=== PATIENT | male | born 1940 | race Caucasian/White ===

== ENCOUNTER 2017-04-22 22:12 | Emergency (ER) | payer MEDICARE, OTHER ==
[2017-04-22 23:23] LABS: RBC URINE < 1 /hpf (0-3); URINE BILIRUBIN NEGATIVE (NEGATIVE); URINE BLOOD NEGATIVE (NEGATIVE); URINE COLOR Straw (YELLOW); URINE GLUCOSE (UA) NORMAL (Normal); URINE KETONE NEGATIVE (NEGATIVE); URINE LEUKOCYTE ESTERASE NEG Leu/uL (Negative); URINE PROTEIN NEGATIVE (NEGATIVE); URINE UROBILINOGEN NORMAL mg/dL (0.2-1.0)
[2017-04-22 23:27] LABS: CHLORIDE 102 mmol/L (98-107); POTASSIUM 4.2 mmol/L (3.6-5.2); SODIUM 137 mmol/L (132-148)
[2017-04-22 23:29] LABS: ALB/GLOB RATIO 1.4 (1.0-2.1); BILIRUBIN,TOTAL 0.6 mg/dL (0.2-1.3); CARBON DIOXIDE 25 mmol/L (22-30); CHOLESTEROL 152 mg/dL (0-199); GFR AFRICAN-AMERICAN 55; TOTAL PROTEIN 7.2 g/dL (6.3-8.3)
[2017-04-22 23:30] LABS: ALKALINE PHOSPHATASE 63 U/L (38-126); ALT/SGPT 30 U/L (21-72); AST/SGOT 30 U/L (17-59); BLOOD UREA NITROGEN 22 mg/dL (9-20); CALCIUM 9.2 mg/dl (8.6-10.4); GLUCOSE,RANDOM 102 mg/dL (75-110)
--- NOTE | 2017-04-22 23:35 | CT ---
EXAM: CT Head Without Intravenous Contrast CLINICAL HISTORY: 76 years old, male; Signs and symptoms; Numbness / parasthesia; Right; Additional info: Transient r facial/body numbness TECHNIQUE: Axial computed tomography images of the head/brain without intravenous contrast. This CT exam was performed using one or more of the following dose reduction techniques: automated exposure control, adjustment of the mA and/or kV according to patient size, and/or use of iterative reconstruction technique. COMPARISON: CT - HEAD W/O CONTRAST 10/24/2015 7:08:09 PM FINDINGS: Brain: No acute intracranial hemorrhage. Age-appropriate periventricular white matter disease. No edema. Again identified are findings suggesting prior cerebral infarctions, within the left cerebellum and occipital lobes. Ventricles: Age-appropriate ventriculomegaly. Bones: No acute displaced fracture. Sinuses: Unremarkable as visualized. No acute sinusitis. Mastoid air cells: Unremarkable as visualized. No mastoid effusion. IMPRESSION: No acute intracranial hemorrhage, or suspicious mass effect.
--- NOTE | 2017-04-23 00:14 | C.PDOC ---
Time Seen by Provider: 04/22/17 22:58 Chief Complaint (Nursing): Weakness/Neurological Deficit Past Medical History Vital Signs: Last Vital Signs Temp 97.8 F 04/22/17 22:17 Pulse 61 04/22/17 22:17 Resp 20 04/22/17 22:17 BP 132/78 04/22/17 22:17 Pulse Ox 97 04/22/17 22:17 - Medical History PMH: Atrial Fibrillation, Benign Prostatic Hyperplasia, HTN Surgical History: CABG (2016) - [facility] Procedures CLOSURE SKIN & SUBCUTANEOUS NEC (05/08/14) CORONAR ARTERIOGR-2 CATH (02/04/15) INJECT/INFUSE NEC (02/05/15) INSERTION OF ENDOTRACHEAL AIRWAY INTO TRACHEA, ENDO (04/29/16) INSERTION OF ONE VASCULAR STENT (02/05/15) INSRT OF DRUG-ELUTING CORON ARTERY STENTS(S) (02/05/15) LEFT HEART CARDIAC CATH (02/04/15) LT HEART ANGIOCARDIOGRAM (02/04/15) MEASURE OF CARDIAC SAMPL & PRESSURE, L HEART, PERC APPROACH (04/29/16) PERCUTANEOUS TRANSLUMINAL CORONARY ANGIOPLASTY [PTCA] (02/05/15) PLAIN RADIOGRAPHY OF LEFT HEART USING LOW OSMOLAR CONTRAST (04/29/16) PLAIN RADIOGRAPHY OF MULT COR ART USING L OSM CONTRAST (04/29/16) PROCEDURE ON SINGLE VESSEL (02/05/15) RESPIRATORY VENTILATION, 24-96 CONSECUTIVE HOURS (04/29/16) TETANUS TOXOID ADMINIST (05/08/14) Family History: States: Unknown Family Hx - Social History Hx Tobacco Use: No Hx Alcohol Use: No Hx Substance Use: No - Immunization History Hx Tetanus Toxoid Vaccination: No Hx Influenza Vaccination: No Hx Pneumococcal Vaccination: No ED Course And Treatment - Laboratory Results Result Diagrams: 04/22/17 23:15 O2 Sat by Pulse Oximetry: 97
--- NOTE | 2017-04-23 00:15 | C.PDOC ---
History Of Present Illness 76 year old male was brought to the ED by EMS complaints of transient right body weakness and paresthesia while walking. Patient denies any fever, vision changes, vomiting, or chest pain. Time Seen by Provider: 04/22/17 22:58 Chief Complaint (Nursing): Weakness/Neurological Deficit History Per: Patient History/Exam Limitations: no limitations Onset/Duration Of Symptoms: Hrs Current Symptoms Are (Timing): Gone (Patient notes symptoms resolved upon arrival to ED) Fall Associated With With Symptoms: No Recent travel outside of the [place]: No Additional History Per: EMS Past Medical History Reviewed: Historical Data, Nursing Documentation, Vital Signs Vital Signs: Last Vital Signs Temp 97.8 F 04/22/17 22:17 Pulse 63 04/23/17 00:17 Resp 20 04/23/17 00:17 BP 131/102 H 04/23/17 00:17 Pulse Ox 97 04/23/17 00:36 - Medical History PMH: Atrial Fibrillation, Benign Prostatic Hyperplasia, HTN Surgical History: CABG (2015) - [facility] Procedures CLOSURE SKIN & SUBCUTANEOUS NEC (05/08/14) CORONAR ARTERIOGR-2 CATH (02/04/15) INJECT/INFUSE NEC (02/05/15) INSERTION OF ENDOTRACHEAL AIRWAY INTO TRACHEA, ENDO (04/29/16) INSERTION OF ONE VASCULAR STENT (02/05/15) INSRT OF DRUG-ELUTING CORON ARTERY STENTS(S) (02/05/15) LEFT HEART CARDIAC CATH (02/04/15) LT HEART ANGIOCARDIOGRAM (02/04/15) MEASURE OF CARDIAC SAMPL & PRESSURE, L HEART, PERC APPROACH (04/29/16) PERCUTANEOUS TRANSLUMINAL CORONARY ANGIOPLASTY [PTCA] (02/05/15) PLAIN RADIOGRAPHY OF LEFT HEART USING LOW OSMOLAR CONTRAST (04/29/16) PLAIN RADIOGRAPHY OF MULT COR ART USING L OSM CONTRAST (04/29/16) PROCEDURE ON SINGLE VESSEL (02/05/15) RESPIRATORY VENTILATION, 24-96 CONSECUTIVE HOURS (04/29/16) TETANUS TOXOID ADMINIST (05/08/14) Family History: States: Unknown Family Hx - Social History Hx Tobacco Use: No Hx Alcohol Use: No Hx Substance Use: No - Immunization History Hx Tetanus Toxoid Vaccination: No Hx Influenza Vaccination: No Hx Pneumococcal Vaccination: No Review Of Systems Constitutional: Positive for: Weakness (right sided body weakness). Negative for: Fever, Chills Eyes: Negative for: Vision Change Cardiovascular: Negative for: Chest Pain, Palpitations Respiratory: Negative for: Cough, Shortness of Breath Gastrointestinal: Negative for: Nausea, Vomiting, Abdominal Pain, Diarrhea Neurological: Positive for: Other (paresthesia while walking ) Physical Exam - Physical Exam Appears: Non-toxic, No Acute Distress Skin: Warm, Dry Head: Atraumatic Eye(s): bilateral: Normal Inspection, PERRL, EOMI Oral Mucosa: Moist Neck: Supple Chest: No Symmetrical Cardiovascular: Rhythm Regular Respiratory: No Rales, No Rhonchi, No Stridor, No Wheezing Gastrointestinal/Abdominal: Soft, No Tenderness, No Distention, No Guarding, No Rebound Extremity: Normal ROM, No Tenderness, No Calf Tenderness, Capillary Refill ( good capillary refill less than two seconds ), No Swelling Neurological/Psych: Oriented x3, Normal Speech, Normal Cognition, Normal Motor, Normal Sensation, Normal Reflexes Gait: Steady ED Course And Treatment - Laboratory Results Result Diagrams: 04/22/17 23:15 ECG: Interpreted By [facility] ECG Rhythm: Sinus Rhythm ECG Interpretation: Normal Rate From EC O2 Sat by Pulse Oximetry: 97 (room air ) Pulse Ox Interpretation: Normal - Radiology CXR: Interpreted by [facility] CXR Interpretation: Yes: No Acute Disease - CT Scan/US CT Head Without Intravenous Contrast Other Rad Studies (CT/US): Read By Radiologist, Radiology Report Reviewed CT/US Interpretation: Impression: No acute intracranial hemorrhage, or suspicious mass effect. Progress Note: approx 0015 pt developed a sudden R facial droop, expressive aphasia, but able to follow simple directions and show one or two fingers as instructed. CTA ordered, ASA CO previously given. 0100: symptoms normalizing again. case d/w Dr. Red Ramos- Neuro @ [facility]- agrees to accept in transfer, recommends ASA CO only. CTA results pending. Reevaluation Time: 01:15 Reassessment Condition: Improved NIHSS Stroke Scale - Date/Time Evaluation Performed Date Performed: 04/22/17 Time Performed: 23:00 - How Severe is the Stoke Level of Consciousness: 0=Alert LOC to Questions: 0=Both comments correct LOC to commands: 0=Obeys both correctly Best Gaze: 0=Normal Visual: 0=No visual loss Facial: 0=Normal Motor Arm - Left: 0=No drift Motor Arm - Right: 0=No drift Motor Leg - Left: 0=No drift Motor Leg - Right: 0=No drift Limb Ataxia: 0=Absent Sensory: 0=Normal Best Language: 0=No aphasia Dysarthia: 0=Normal articulation Extinction & Inattention (Neglect): 0=Normal, no object Score: 0 Severity Of Stroke: 0= No Stroke rTPA Inclusion/Exclusion - Refusal of Treatment Patient Refused Treatment: No - Inclusion Criteria for Altepase Patient is 18 years or Older: Yes The Clinical Diagnosis of Ischemic Stroke That is Causing a Potentially Disabling Neurological Deficit: No Time of Onset is Well Established to be Less Than 270 Minute Before Treatment Would Begin: Yes Risk/Benefit Discussed With Patient/Family Member Present: No - Exclusion Criteria for Altepase Uncontrolled Hypertension at Time of Treatment (Systolic BP above 185 or Diastolic BP above 110 mmHg): No Known Bleeding Diathesis Including but Not Limited to: Platelets Below 100,000/ mm,PTT Above 40 sec After Heparin Use, Current Use of Oral Anitcoagulant With INR Greater Than 1.7 or PT Greater Than 15 secs: No Evidence of an Intracranial Hemorrhage: No Evidence of Major Acute Infarct With Signs Greater Than 1/3 MCA Territory: No Suspicion of Subarachnoid Hemorrhage on Pretreatment Evaluation Even if CT Head Negative For Hemorrhage: No - Warning to TPA With Conditions Condition: Stroke Serevity Too Mild Medical Decision Making Medical Decision Makin: head CT neg, CTA grossly neg, R internal carotid stenosis noted. 0130: multiple TIA, with spontaneous resolution in ED. R internal carotid stenosis noted on CTA, no acute brain pathology on non-contrast had CT nor CTA. ASA CO given. Plan to transfer to [facility], accepted by Dr. Red Ramos, Neurology. Disposition - Disposition Disposition: Trans to Other Acute Care Hosp Disposition Time: 01:30 Condition: GOOD - Clinical Impression Clinical Impression: TIA (transient ischemic attack), Carotid stenosis - Scribe Statement The provider has reviewed the documentation as recorded by the Scribe Corin Randle All medical record entries made by the Scribe were at my direction and personally dictated by me. I have reviewed the chart and agree that the record accurately reflects my personal performance of the history, physical exam, medical decision making, and the department course for this patient. I have also personally directed, reviewed, and agree with the discharge instructions and disposition.
[2017-04-23] MEDS ORDERED: Iodixanol 320 MG/ML 100 ML BOTTLE IV ONE (00:22)
[2017-04-23 00:52] VITALS: BMI 28.4
[2017-04-23 01:43] VITALS: O2SAT 96
[2017-04-23 02:09] LABS: BASO % 0.7 % (0.0-2.0); EOS # 0.2 K/uL (0.0-0.7); EOS % 2.6 % (0.0-4.0); HEMATOCRIT 41.9 % (35.0-51.0); LYMPH # 1.8 K/uL (1.0-4.3); LYMPH % 29.1 % (20.0-40.0); MEAN CELL VOLUME 91.8 fL (80.0-94.0); MEAN CORPUSCULAR HEMOGLOBIN 29.9 pg (27.0-31.0); MEAN CORPUSCULAR HGB CONC 32.5 g/dL (33.0-37.0); MEAN PLATELET VOLUME 9.2 fL (7.2-11.7); MONO # 0.6 K/uL (0.0-0.8); MONO % 8.7 % (0.0-10.0); RED CELL DISTRIBUTION WIDTH 12.7 % (11.5-14.5); WHITE BLOOD COUNT 6.3 K/uL (4.8-10.8)
[2017-04-23 02:10] VITALS: TEMP 98.1
[2017-04-23 02:24] VITALS: PULSE 60
[2017-04-23 03:28] VITALS: BP 164/88; RESP 14
--- NOTE | 2017-04-23 10:18 | RAD ---
HISTORY: weakness COMPARISON: 07/01/2016 FINDINGS: LUNGS: Confluent airspace consolidative changes in the left mid to lower lung zone with associated small to moderate left pleural effusion. Biapical pleural thickening with upper lobe granulomatous changes. PLEURA: As above. CARDIOVASCULAR: Status post median sternotomy. Cardiomegaly. OSSEOUS STRUCTURES: Degenerative changes in the spine and shoulders. VISUALIZED UPPER ABDOMEN: Normal. OTHER FINDINGS: None. IMPRESSION: Confluent airspace consolidative changes in the left mid to lower lung zone with associated small to moderate left pleural effusion. Biapical pleural thickening with upper lobe granulomatous changes.
--- NOTE | 2017-04-23 11:31 | CT ---
PROCEDURE: CT angiography of the brain dated 04/23/2017 HISTORY: Sudden aphasia . ? Wernicke's/L temporal COMPARISON: Comparison made with prior CT scan of the brain dated 04/22/2017 at 2330 hours TECHNIQUE: CT angiography of the neck and intracranial circulation was performed. Coronal and sagittal maximum intensity projection reformated images were generated. This CT exam was performed using one or more of the following dose reduction techniques: Automated exposure control, adjustment of the mA and/or kV according to patient size, and/or use of iterative reconstruction technique. Contrast dose: 100 cc Visipaque 320 Radiation dose: Total exam DLP = 507.26 mGy-cm. . Findings: FINDINGS: No acute parenchymal or extra-axial hemorrhage. Note that evaluation for subarachnoid hemorrhage somewhat limited due to the presence of circulating intravenous contrast material. Moderate to significant diffuse/ confluent chronic periventricular white matter ischemic changes most pronounced in the parietal regions bilaterally. Additionally, chronic infarct in the posteromedial and inferior margin of the left cerebellum unchanged from prior study. Moderate to significant generalized volume loss. Right and left common carotid arteries are patent throughout, left-sided which is slightly larger in caliber/ more dominant than the right. Extensive soft plaque is present at the left right carotid bifurcation and results in severe high-grade stenosis of the right internal carotid artery with severe string sign best seen on axial image numbers 76 -- 78. . There is slightly increased caliber of the more distal internal carotid artery as it enters the petrous canal. Another significant stenosis is seen at the level of the right cavernous carotid artery best seen on axial image number 136. There is asymmetry of the A1 segments right-sided which smaller in caliber than the left side. The M1 segments are patent bilaterally. There is minimal asymmetry of the distal branches of the no likely anatomic variation as no definitive large acute MCA territory infarct is identified. . The vertebral arteries are patent and relatively symmetric throughout. Basilar artery is also patent as are the proximal posterior cerebral arteries. The distal posterior cerebral arteries are relatively symmetric as well. No evidence of large aneurysm nor vascular malformation. The Mild biapical pleural thickening and parenchymal scarring and what appears represent some bronchiectasis right lung apex with level of few small blebs. There also appears to be some mild peripheral somewhat nodular pleural based calcifications left lung apex. Polypoid like mucosal thickening and/or mucous retention cyst formation left maxillary sinus. Changes of bilateral cataract surgery. Impression: Very severe high-grade stenosis of the proximal mid aspect of the right internal carotid artery. There is also significant localized stenosis of the right cavernous carotid artery. 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 Mild volume loss.
--- NOTE | 2017-04-26 11:56 | CARD ---
APPROVED REPORT EKG Measurement Heart [id number] ID [id number] <Conclusion> Sinus rhythm with occasional premature ventricular complexes Low voltage QRS Borderline ECG
== END 2017-04-23 03:28 | disposition short-term general hospital (02) ==
LOC: C.ER 22:12
DX: G45.9 Transient cerebral ischemic attack, unspecified (principal); I65.21 Occlusion and stenosis of right carotid artery; N40.0 Benign prostatic hyperplasia without lower urinary tract symptoms; I10 Essential (primary) hypertension; I48.91 Unspecified atrial fibrillation
CPT/HCPCS: 70450; 70460; 71010; 80053; 80061; 81001; 83036; 83880; 84484; 85025; 85610; 85730; 86850; 86900; 99285; Q9967

== ENCOUNTER 2017-04-29 12:09 | Emergency (ER) | payer MEDICARE, OTHER ==
[2017-04-29 12:09] VITALS: BMI 28.4
[2017-04-29 12:32] VITALS: RESP 20
--- NOTE | 2017-04-29 13:26 | C.PDOC ---
History Of Present Illness 76 yo male, hx of htn, tia/cva, presents with right sided numbness. pt poor historian. pt reports was d/c from another facility last night. noted pt was recently transferred to [facility] for cva on 04/23. pt reports he had right sided numbness which started last night, and resolved at 11am today, specifically to right sided face and arm. at this time, pt denies complaints, already voicing he would like to be d/c. no cp, fevers, n/v/d, urinary changes or other complaints Time Seen by Provider: 04/29/17 13:01 Chief Complaint (Nursing): Weakness/Neurological Deficit Past Medical History Reviewed: Historical Data, Nursing Documentation, Vital Signs Vital Signs: Last Vital Signs Temp 97.6 F 04/29/17 14:43 Pulse 56 L 04/29/17 14:43 Resp 20 04/29/17 14:43 BP 125/78 04/29/17 14:43 Pulse Ox 97 04/29/17 14:43 - Medical History PMH: Atrial Fibrillation, Benign Prostatic Hyperplasia, HTN Surgical History: CABG (2015) - [facility] Procedures CLOSURE SKIN & SUBCUTANEOUS NEC (05/08/14) CORONAR ARTERIOGR-2 CATH (02/04/15) INJECT/INFUSE NEC (02/05/15) INSERTION OF ENDOTRACHEAL AIRWAY INTO TRACHEA, ENDO (04/29/16) INSERTION OF ONE VASCULAR STENT (02/05/15) INSRT OF DRUG-ELUTING CORON ARTERY STENTS(S) (02/05/15) LEFT HEART CARDIAC CATH (02/04/15) LT HEART ANGIOCARDIOGRAM (02/04/15) MEASURE OF CARDIAC SAMPL & PRESSURE, L HEART, PERC APPROACH (04/29/16) PERCUTANEOUS TRANSLUMINAL CORONARY ANGIOPLASTY [PTCA] (02/05/15) PLAIN RADIOGRAPHY OF LEFT HEART USING LOW OSMOLAR CONTRAST (04/29/16) PLAIN RADIOGRAPHY OF MULT COR ART USING L OSM CONTRAST (04/29/16) PROCEDURE ON SINGLE VESSEL (02/05/15) RESPIRATORY VENTILATION, 24-96 CONSECUTIVE HOURS (04/29/16) TETANUS TOXOID ADMINIST (05/08/14) Family History: States: Unknown Family Hx - Social History Hx Tobacco Use: No Hx Alcohol Use: No Hx Substance Use: No - Immunization History Hx Tetanus Toxoid Vaccination: No Hx Influenza Vaccination: No Hx Pneumococcal Vaccination: No Review Of Systems Except As Marked, All Systems Reviewed And Found Negative. Neurological: Positive for: Numbness Physical Exam - Physical Exam Appears: Well, No Acute Distress Skin: Normal Color, Warm, Dry Eye(s): bilateral: Normal Inspection, PERRL, EOMI Nose: Normal Throat: Normal Neck: Normal Cardiovascular: Rhythm Regular Respiratory: Normal Breath Sounds Gastrointestinal/Abdominal: Normal Exam Back: Normal Inspection Extremity: Normal ROM Neurological/Psych: Oriented x3, Normal Speech, Normal Cognition, Normal Cranial Nerves, No Cerebellar Signs, Normal Motor, Normal Sensation ED Course And Treatment - Laboratory Results Result Diagrams: 04/29/17 13:34 04/29/17 13:34 O2 Sat by Pulse Oximetry: 98 Medical Decision Making Medical Decision Making: r/o tia/cva - labs imaging pending. pt poor historian. information obtained via hose sprayer 140: ekg sinus sudhir [address] t wave changes. nomral intervals. 215: pt again discussed results wtih hose sprayer juan luis lovell bedside. again request pt be observed in hospital to r/o cva. pt refuses. signs ama. warned of risks. advised extensivelywith hose sprayer, that pt will need mri to exclude acute stroke. The patient declines to have further medical evaluation and treatment and wishes to leave the Emergency Department. This action is against my medical advice to the patient, and with informed refusal. The patient was told that evaluation and treatment are necessary and a full explanation of the rationale was given. The risks of leaving were explained to the patient and include, but are not limited to, worsening of known or currently unknown conditions, permanent disability and from undiagnosed or untreated conditions The patient has the capacity to make this informed decision and understands the clinical situation and my explanation of the risks of leaving. The patient voluntarily accepts these risks, and a signed AMA form documenting our conversation was obtained. The patient was given the opportunity to ask questions and reconsider. The patient was encouraged to return to the Emergency Department at any time for further care. Disposition - Disposition Referrals: [facility] [Outside] [facility] [Outside] Rick Colon MD [Staff Provider] - Disposition: AGAINST MEDICAL ADVICE Disposition Time: 02:00 Condition: UNKNOWN Additional Instructions: you are leaving aginst medical advise. you are able to return at any time with any concern. please see your doctor/clinic and specialist. Instructions: Transient Ischemic Attack (ED), Paresthesia (ED), Against Medical Advice (ED) Print Language: LUXEMBOURGER - Clinical Impression Clinical Impression: Numbness
[2017-04-29 13:48] LABS: BASO % 0.4 % (0.0-2.0); EOS # 0.2 K/uL (0.0-0.7); EOS % 2.5 % (0.0-4.0); HEMOGLOBIN 14.8 g/dL (12.0-18.0); LYMPH # 1.3 K/uL (1.0-4.3); LYMPH % 20.1 % (20.0-40.0); MEAN CELL VOLUME 92.3 fL (80.0-94.0); MEAN CORPUSCULAR HEMOGLOBIN 29.8 pg (27.0-31.0); MEAN CORPUSCULAR HGB CONC 32.3 g/dL (33.0-37.0); MEAN PLATELET VOLUME 9.7 fL (7.2-11.7); MONO # 0.6 K/uL (0.0-0.8); MONO % 9.4 % (0.0-10.0); NEUT # 4.4 K/uL (1.8-7.0); NEUT % 67.6 % (50.0-75.0); NRBC % 0.1 % (0.0-2.0); RBC 4.98 Mil/uL (4.40-5.90); RED CELL DISTRIBUTION WIDTH 13.3 % (11.5-14.5); WHITE BLOOD COUNT 6.5 K/uL (4.8-10.8)
[2017-04-29 13:55] LABS: URINE BILIRUBIN NEGATIVE (NEGATIVE); URINE BLOOD NEGATIVE (NEGATIVE); URINE CLARITY Clear (Clear); URINE COLOR Yellow (YELLOW); URINE GLUCOSE (UA) NORMAL (Normal); URINE LEUKOCYTE ESTERASE NEG Leu/uL (Negative); URINE NITRATE NEGATIVE (NEGATIVE); URINE PROTEIN NEGATIVE (NEGATIVE); URINE UROBILINOGEN NORMAL mg/dL (0.2-1.0)
[2017-04-29 13:57] LABS: PROTHROMBIN TIME 11.4 SECONDS (9.7-12.2)
[2017-04-29 13:59] LABS: ALB/GLOB RATIO 1.3 (1.0-2.1); AST/SGOT 28 U/L (17-59); GFR AFRICAN-AMERICAN > 60; GFR NON-AFRICAN AMERICAN 59
[2017-04-29 14:00] LABS: ALT/SGPT 28 U/L (21-72); BLOOD UREA NITROGEN 20 mg/dL (9-20); CALCIUM 8.8 mg/dl (8.6-10.4); HDL CHOLESTEROL 49 mg/dL (30-70)
--- NOTE | 2017-04-29 14:05 | CT ---
PROCEDURE: CT HEAD WITHOUT CONTRAST. HISTORY: numbness COMPARISON: Noncontrast head CT performed 04/22/17 TECHNIQUE: Axial computed tomography images were obtained through the head/brain without intravenous contrast. Radiation dose: Total exam DLP = 841.89 mGy-cm. This CT exam was performed using one or more of the following dose reduction techniques: Automated exposure control, adjustment of the mA and/or kV according to patient size, and/or use of iterative reconstruction technique. FINDINGS: HEMORRHAGE: No intracranial hemorrhage. BRAIN: Diffuse atrophy with prominence of the ventricles and sulci noted. No mass effect or edema. Intracranial atherosclerotic calcifications. Moderate scattered periventricular and subcortical white matter hypodensities, which are nonspecific, but often seen with chronic microvascular ischemic disease. Hypodensities are most pronounced within the parietal regions bilaterally. Encephalomalacia re-identified involving the left cerebellum and occipital lobes. Please note that MRI with diffusion imaging is more sensitive in the detection of acute ischemic event. VENTRICLES: No hydrocephalus. CALVARIUM: Unremarkable. PARANASAL SINUSES: Unremarkable as visualized. No significant inflammatory changes. MASTOID AIR CELLS: Unremarkable as visualized. No inflammatory changes. OTHER FINDINGS: None. IMPRESSION: Generalized atrophy. Moderate nonspecific white matter changes as described above. Encephalomalacia involving the left cerebellum and occipital lobes.
--- NOTE | 2017-04-29 14:10 | RAD ---
HISTORY: right side numbness COMPARISON: Chest x-ray performed 04/22/17 TECHNIQUE: Chest, one view. FINDINGS: LUNGS: Biapical pleural thickening. Patient's chin obscures evaluation of the lung apices, predominantly the right. Left basilar atelectasis /infiltrate and or small pleural effusion. No definite pneumothorax. Please note that chest x-ray has limited sensitivity for the detection of pulmonary masses. CARDIOVASCULAR: Median sternotomy wires. Heart size appears within normal limits. OSSEOUS STRUCTURES: Degenerative changes of the spine and shoulders. VISUALIZED UPPER ABDOMEN: Elevation of the left hemidiaphragm. OTHER FINDINGS: None. IMPRESSION: Biapical pleural thickening. Left basilar atelectasis /infiltrate and or small pleural effusion.
[2017-04-29 14:11] LABS: LDL CHOLESTEROL 69 mg/dL (0-129)
[2017-04-29 14:44] VITALS: BP 125/78; PULSE 56; TEMP 97.6
[2017-04-29 23:43] VITALS: O2SAT 98
--- NOTE | 2017-04-30 17:14 | CARD ---
APPROVED REPORT EKG Measurement Heart [id number] <Conclusion> Sinus bradycardia Otherwise normal ECG
== END 2017-04-29 14:42 | disposition left against medical advice (07) ==
LOC: C.ER 12:09
DX: R20.0 Anesthesia of skin (principal)

== ENCOUNTER 2018-04-15 14:26 | Emergency (ER) | payer MEDICARE, OTHER ==
[2018-04-15 14:27] VITALS: BMI 28.4
--- NOTE | 2018-04-15 14:59 | C.PDOC ---
History Of Present Illness 77 y/o male presents to ED with c/o testicular pain for 2 days after he accidentally struck area while bathing. Patient denies redness, swelling, fever , chills, penile discharge, dysuria, hematuria or any other complaints at this time. Time Seen by Provider: 04/15/18 14:51 Chief Complaint (Nursing): Male Genitourinary History Per: Patient History/Exam Limitations: no limitations Onset/Duration Of Symptoms: Days Current Symptoms Are (Timing): Still Present Quality Of Discomfort: "Pain" Past Medical History Reviewed: Historical Data, Nursing Documentation, Vital Signs Vital Signs: Last Vital Signs Temp 98.4 F 04/15/18 17:05 Pulse 54 L 04/15/18 17:05 Resp 16 04/15/18 17:05 BP 108/64 04/15/18 17:05 Pulse Ox 97 04/15/18 17:05 - Medical History PMH: Atrial Fibrillation, Benign Prostatic Hyperplasia, CAD, HTN Surgical History: CABG (2015) - [facility] Procedures CLOSURE SKIN & SUBCUTANEOUS NEC (05/08/14) CORONAR ARTERIOGR-2 CATH (02/04/15) INJECT/INFUSE NEC (02/05/15) INSERTION OF ENDOTRACHEAL AIRWAY INTO TRACHEA, ENDO (04/29/16) INSERTION OF ONE VASCULAR STENT (02/05/15) INSRT OF DRUG-ELUTING CORON ARTERY STENTS(S) (02/05/15) LEFT HEART CARDIAC CATH (02/04/15) LT HEART ANGIOCARDIOGRAM (02/04/15) MEASURE OF CARDIAC SAMPL & PRESSURE, L HEART, PERC APPROACH (04/29/16) PERCUTANEOUS TRANSLUMINAL CORONARY ANGIOPLASTY [PTCA] (02/05/15) PLAIN RADIOGRAPHY OF LEFT HEART USING LOW OSMOLAR CONTRAST (04/29/16) PLAIN RADIOGRAPHY OF MULT COR ART USING L OSM CONTRAST (04/29/16) PROCEDURE ON SINGLE VESSEL (02/05/15) RESPIRATORY VENTILATION, 24-96 CONSECUTIVE HOURS (04/29/16) TETANUS TOXOID ADMINIST (05/08/14) Family History: States: Diabetes - Social History Hx Tobacco Use: Yes (Quit 18 yrs ago) Hx Alcohol Use: No Hx Substance Use: No - Immunization History Hx Tetanus Toxoid Vaccination: No Hx Influenza Vaccination: No Hx Pneumococcal Vaccination: No Review Of Systems Constitutional: Negative for: Fever, Chills Gastrointestinal: Negative for: Nausea, Vomiting Genitourinary: Positive for: Other (testicular pain). Negative for: Dysuria, Hematuria Skin: Negative for: Rash Physical Exam - Physical Exam Appears: Non-toxic, No Acute Distress Skin: Warm, Dry, No Rash Head: Atraumatic, Normacephalic Eye(s): bilateral: Normal Inspection Oral Mucosa: Moist Neck: Normal ROM, Supple Cardiovascular: Rhythm Regular Respiratory: Normal Breath Sounds, No Rales, No Rhonchi, No Wheezing Gastrointestinal/Abdominal: Soft, No Tenderness, No Guarding, No Rebound Male Genital: Testicular Tenderness (mild to left testicle), No Inguinal Swelling, No Scrotal Swelling Neurological/Psych: Oriented x3, Normal Speech ED Course And Treatment - Laboratory Results Result Diagrams: 04/15/18 15:19 04/15/18 15:19 Lab Interpretation: Normal (UA neg.) O2 Sat by Pulse Oximetry: 98 (RA) Pulse Ox Interpretation: Normal - Other Rad testicular US X-Ray: Interpreted by Me, Read By Radiologist (no acute injury, no sig pathology ) Progress Note: motrin PO Reevaluation Time: 16:50 Reassessment Condition: Improved Medical Decision Making Medical Decision Making: mild L testicular trauma (self-inflicted by accident) 3 days ago no hematoma, no torsion Disposition Doctor Will See Patient In The: Office Counseled Patient/Family Regarding: Studies Performed, Diagnosis - Disposition Referrals: Rajan Silverio MD [Staff Provider] - Rajat Bruce MD [Staff Provider] - Disposition: HOME/ ROUTINE Disposition Time: 16:51 Condition: GOOD Additional Instructions: continue normal routine ice packs to the testicle 1/2 hour per hour as needed motrin 400-600 mg every 6 hours as needed Follow-up with Urology- Dr. Bruce, as needed Call for an appointment. normal Testicular Ultrasound today. Instructions: Testicular Injury Forms: [facility] (Faroese) - Clinical Impression Clinical Impression: Pain in testicle due to trauma - Scribe Statement The provider has reviewed the documentation as recorded by the Scribe Jaxson Betts All medical record entries made by the Scribe were at my direction and personally dictated by me. I have reviewed the chart and agree that the record accurately reflects my personal performance of the history, physical exam, medical decision making, and the department course for this patient. I have also personally directed, reviewed, and agree with the discharge instructions and disposition.
[2018-04-15 15:25] LABS: BASO % 0.7 % (0.0-2.0); EOS # 0.2 K/uL (0.0-0.7); LYMPH # 1.2 K/uL (1.0-4.3); LYMPH % 18.9 % (20.0-40.0); MEAN CELL VOLUME 91.1 fL (80.0-94.0); MEAN CORPUSCULAR HEMOGLOBIN 30.4 pg (27.0-31.0); MEAN CORPUSCULAR HGB CONC 33.4 g/dL (33.0-37.0); MEAN PLATELET VOLUME 8.7 fL (7.2-11.7); MONO # 0.7 K/uL (0.0-0.8); NEUT % 65.4 % (50.0-75.0); NRBC % 0.1 % (0.0-2.0); RBC 4.6 Mil/uL (4.40-5.90); RED CELL DISTRIBUTION WIDTH 13.2 % (11.5-14.5); WHITE BLOOD COUNT 6.1 K/uL (4.8-10.8)
[2018-04-15 15:31] LABS: URINE BILIRUBIN NEGATIVE (NEGATIVE); URINE BLOOD NEGATIVE (NEGATIVE); URINE CLARITY Clear (Clear); URINE COLOR Yellow (YELLOW); URINE GLUCOSE (UA) NORMAL (Normal); URINE LEUKOCYTE ESTERASE NEG Leu/uL (Negative); URINE PROTEIN NEGATIVE (NEGATIVE); URINE UROBILINOGEN NORMAL mg/dL (0.2-1.0)
[2018-04-15 15:36] LABS: ALB/GLOB RATIO 1.5 (1.0-2.1); ALBUMIN 4.3 g/dL (3.5-5.0); ALT/SGPT 27 U/L (21-72); AST/SGOT 31 U/L (17-59); BLOOD UREA NITROGEN 23 mg/dL (9-20); CALCIUM 8.9 mg/dl (8.6-10.4); GFR AFRICAN-AMERICAN > 60; GFR NON-AFRICAN AMERICAN 54; LIPASE 245 U/L (23-300)
--- NOTE | 2018-04-15 16:35 | US ---
HISTORY: Left testicle minor trauma 3 days ago TECHNIQUE: Realtime sonography through the scrotum with color and doppler flow. COMPARISON: None Available. FINDINGS: RIGHT TESTICLE: Measures 4.3 x 1.7 x 2.5 cm. Normal echotexture and flow. RIGHT EPIDIDYMIS: Epididymal head measures 0.7 x 0.8 x 0.9 cm. Grossly unremarkable appearance with normal flow. LEFT TESTICLE: Measures 3.9 x 1.9 x 2.4 cm. Normal echotexture and flow. LEFT EPIDIDYMIS: Epididymal head measures 1.3 x 0.9 x 1.3 cm. There is a 5 mm cyst in the head of the epididymis otherwise normal in echotexture with normal flow. HYDROCELE: There are bilateral small complicated hydroceles. VARICOCELE: There is a small left varicocele. OTHER FINDINGS: None. IMPRESSION: No evidence for testicular mass, torsion or hematoma. Small bilateral complicated hydroceles and small left varicocele.
[2018-04-15 17:06] VITALS: BP 108/64; PULSE 54; RESP 16; TEMP 98.4
[2018-04-15 17:11] VITALS: O2SAT 98
== END 2018-04-15 17:32 | disposition home or self-care (01) ==
LOC: C.ER 14:26
DX: N50.812 Left testicular pain (principal)

== ENCOUNTER 2018-12-22 13:14 | Observation (INO) | payer MEDICARE, OTHER ==
[2018-12-22 15:00] LABS: BASO % 0.4 % (0.0-2.0); EOS # 0.1 K/uL (0.0-0.7); HEMOGLOBIN 14.4 g/dL (12.0-18.0); LYMPH # 1.3 K/uL (1.0-4.3); LYMPH % 18.6 % (20.0-40.0); MEAN CORPUSCULAR HEMOGLOBIN 30.7 pg (27.0-31.0); MEAN CORPUSCULAR HGB CONC 32.6 g/dL (33.0-37.0); MEAN PLATELET VOLUME 9.9 fL (7.2-11.7); MONO # 0.6 K/uL (0.0-0.8); MONO % 8.9 % (0.0-10.0); NEUT # 4.9 K/uL (1.8-7.0); NEUT % 70.1 % (50.0-75.0); NRBC % 0.1 % (0.0-2.0); RBC 4.69 Mil/uL (4.40-5.90); RED CELL DISTRIBUTION WIDTH 13.3 % (11.5-14.5)
[2018-12-22 15:07] LABS: INR 1.9; PROTHROMBIN TIME 20.8 SECONDS (9.7-12.2)
[2018-12-22 15:08] LABS: MEAN CELL VOLUME 94.1 fL (80.0-94.0)
[2018-12-22 15:22] LABS: ALB/GLOB RATIO 1.9 (1.0-2.1); ALBUMIN 4.6 g/dL (3.5-5.0); ALT/SGPT 23 U/L (21-72); AST/SGOT 41 U/L (17-59); BLOOD UREA NITROGEN 20 mg/dL (9-20); CALCIUM 9.2 mg/dl (8.6-10.4); GFR NON-AFRICAN AMERICAN > 60
--- NOTE | 2018-12-22 15:29 | C.PDOC ---
History Of Present Illness 78 y/o male brought in by ambulance for evaluation of substernal chest pain that began 1 hour SOLE ROUNDER. Patient also complains of SOB that began yesterday, and worsened with the chest pain today. Pain is sub-sternal and radiates up into his neck. He denies pleuritic/positional pain. Patient has PMHx of HTN, A FIB, CABG, BPH. He denies cough, fever, abdominal pain, nausea, vomiting, diaphoresis, or diarrhea. Time Seen by Provider: 12/22/18 14:39 Chief Complaint (Nursing): Chest Pain History Per: Patient History/Exam Limitations: no limitations Onset/Duration Of Symptoms: Hrs (x1) Current Symptoms Are (Timing): Still Present Severity: Moderate Quality: "Pain" Associated Symptoms: Dyspnea Exacerbating Factors: denies: Movement, Deep Breathing Additional History Per: EMS Past Medical History Reviewed: Historical Data, Nursing Documentation, Vital Signs Vital Signs: Last Vital Signs Temp 97 F L 12/22/18 13:20 Pulse 66 12/22/18 13:20 Resp 18 12/22/18 13:20 BP 168/84 H 12/22/18 13:20 Pulse Ox 94 L 12/22/18 13:20 - Medical History PMH: Atrial Fibrillation, Benign Prostatic Hyperplasia, CAD, HTN Surgical History: CABG (2015) - [facility] Procedures CLOSURE SKIN & SUBCUTANEOUS NEC (05/08/14) CORONAR ARTERIOGR-2 CATH (02/04/15) INJECT/INFUSE NEC (02/05/15) INSERTION OF ENDOTRACHEAL AIRWAY INTO TRACHEA, ENDO (04/29/16) INSERTION OF ONE VASCULAR STENT (02/05/15) INSRT OF DRUG-ELUTING CORON ARTERY STENTS(S) (02/05/15) LEFT HEART CARDIAC CATH (02/04/15) LT HEART ANGIOCARDIOGRAM (02/04/15) MEASURE OF CARDIAC SAMPL & PRESSURE, L HEART, PERC APPROACH (04/29/16) PERCUTANEOUS TRANSLUMINAL CORONARY ANGIOPLASTY [PTCA] (02/05/15) PLAIN RADIOGRAPHY OF LEFT HEART USING LOW OSMOLAR CONTRAST (04/29/16) PLAIN RADIOGRAPHY OF MULT COR ART USING L OSM CONTRAST (04/29/16) PROCEDURE ON SINGLE VESSEL (02/05/15) RESPIRATORY VENTILATION, 24-96 CONSECUTIVE HOURS (04/29/16) TETANUS TOXOID ADMINIST (05/08/14) Family History: States: Diabetes - Social History Hx Tobacco Use: Yes (Quit 18 yrs ago) Hx Alcohol Use: No Hx Substance Use: No - Immunization History Hx Tetanus Toxoid Vaccination: No Hx Influenza Vaccination: No Hx Pneumococcal Vaccination: No Review Of Systems Constitutional: Negative for: Fever, Sweats Eyes: Negative for: Vision Change Cardiovascular: Positive for: Chest Pain. Negative for: Palpitations Respiratory: Positive for: Shortness of Breath. Negative for: Cough Gastrointestinal: Negative for: Nausea, Vomiting, Abdominal Pain, Diarrhea Neurological: Negative for: Weakness, Numbness, Headache, Dizziness Physical Exam - Physical Exam Appears: Well, Non-toxic, No Acute Distress, Other (Speaking in full sentences) Skin: Normal Color, Warm, Dry, No Rash Head: Normacephalic Eye(s): bilateral: Normal Inspection Oral Mucosa: Moist Neck: Normal ROM Chest: No Tenderness, Other (Midline sternotomy scar with overlying keloid) Cardiovascular: Rhythm Regular Respiratory: Normal Breath Sounds, No Rales, No Rhonchi, No Wheezing, Other (Lungs CTA bilaterally) Gastrointestinal/Abdominal: Normal Exam, Bowel Sounds, Soft, No Tenderness, No Distention Extremity: Normal ROM, No Pedal Edema, No Calf Tenderness Pulses: Left Dorsalis Pedis: Normal, Right Dorsalis Pedis: Normal Neurological/Psych: Oriented x3 ED Course And Treatment - Laboratory Results Result Diagrams: 12/25/18 09:17 12/25/18 09:17 ECG: Interpreted By Me, Viewed By Me (sinus rhythm 61 bpm, nromal axis, no acute ST/T wave changes) ECG Interpretation: Normal O2 Sat by Pulse Oximetry: 94 (NC) Pulse Ox Interpretation: Normal - Other Rad CXR X-Ray: Read By Radiologist Interpretation: Accession No. : [id number]. Patient Name / ID : AME CARVAJAL / [id number]. Exam Date : 12/22/2018 15:12:20 ( Approved ). Study Comment : Sex / Age : M / 78Y. Creator : Fernanda Youngblood MD. Dictator : Fernanda Youngblood MD. Corporate Logistics Manager : Switchboard Installer : Fernanda Youngblood MD. A pprover2 : Report Date : 12/22/2018 15:36:31. My Comment : . HISTORY: cp. COMPARISON: Chest x-ray performed 04/29/17. TECHNIQUE: Chest, one view. FINDINGS: Examination limited by patient obliquity. LUNGS: Biapical pleural thickening. Patchy opacity in the medial right upper lobe may reflect atelectasis or pneumonia. Mild left basilar atelectasis. PLEURA: No significant pleural effusion identified. No definite pneumothorax . CARDIOVASCULAR: Median sternotomy wires. Borderline cardiomegaly. Ectatic aorta. Atherosclerotic calcifications of the aorta. OSSEOUS STRUCTURES: Degenerative changes. Osseous demineralization. Acromioclavicular arthropathy. VISUALIZED UPPER ABDOMEN: Mild elevation of the left hemidiaphragm. OTHER FINDINGS: None. IMPRESSION: Medial right upper lobe may reflect atelectasis or pneumonia. Mild left basilar atelectasis. Biapical pleural thickening. Borderline cardiomegaly. Ectatic aorta with atherosclerotic calcifications. Median sternotomy wires. Progress Note: Blood work, CXR, EKG ordered and reviewed. PO ASA given. - Physician Consult Information Physician Contacted: Mary Mcneal Outcome Of Conversation: Discussed patient with hospitalist, agrees with obs tele for chest pain, dyspnea, r/o ACS. Disposition - Disposition Disposition: HOSPITALIZED Disposition Time: 16:41 Condition: STABLE - Clinical Impression Clinical Impression: Dyspnea, Chest pain - Scribe Statement The provider has reviewed the documentation as recorded by the Geeta Fall Provider Attestation: All medical record entries made by the Ricardoibstar were at my direction and personally dictated by me. I have reviewed the chart and agree that the record accurately reflects my personal performance of the history, physical exam, medical decision making, and the department course for this patient. I have also personally directed, reviewed, and agree with the discharge instructions and disposition. Decision To Admit - Pt Status Changed To: Hospital Disposition Of: Observation - . Bed Request Type: Telemetry Admitting Physician: Mary Mcneal Patient Diagnosis: Chest discomfort, Dyspnea
[2018-12-22 15:35] LABS: B-TYPE NATRIURETIC PEPTIDE 168 pg/mL (0-900); CK-MB 1.32 ng/mL (0.0-3.38)
--- NOTE | 2018-12-22 15:39 | RAD ---
HISTORY: cp COMPARISON: Chest x-ray performed 04/29/17 TECHNIQUE: Chest, one view. FINDINGS: Examination limited by patient obliquity. LUNGS: Biapical pleural thickening. Patchy opacity in the medial right upper lobe may reflect atelectasis or pneumonia. Mild left basilar atelectasis. PLEURA: No significant pleural effusion identified. No definite pneumothorax . CARDIOVASCULAR: Median sternotomy wires. Borderline cardiomegaly. Ectatic aorta. Atherosclerotic calcifications of the aorta. OSSEOUS STRUCTURES: Degenerative changes. Osseous demineralization. Acromioclavicular arthropathy. VISUALIZED UPPER ABDOMEN: Mild elevation of the left hemidiaphragm. OTHER FINDINGS: None. IMPRESSION: Medial right upper lobe may reflect atelectasis or pneumonia. Mild left basilar atelectasis. Biapical pleural thickening. Borderline cardiomegaly. Ectatic aorta with atherosclerotic calcifications. Median sternotomy wires.
--- NOTE | 2018-12-22 16:42 | CP.PCM.HP ---
<Dorian Marques - Last Filed: 12/22/18 20:39> History of Present Illness - History of Present Illness History of Present Illness: PGY1 Medicine H and P for Dr. Mcneal This is a 78 year old female with PMH of Afib, aflutter, HTN, CHF, CAD (NE x2) with CABGx2, chronic PE (on xarelto) who presents with dyspnea on exertion for the past few months, worsening over the past 2 days with chest pain for the past 1 hour. Pt is a poor historian. Pt states that he has been unable to walk 1 block or go up on flight of stairs without getting short of breath. When prompted about the chest pain he is unable to describe it but states that he feels better now. Denies headache, dizziness, lightheadedness, visual changes, abdominal pain, n/v/d, fever, chills, cough, leg swelling or pain, recent tr anthony, prolonged immoblization. PMD: Jean Claude Cardio: Dagoberto Pt is a poor historian, pt's history and medications discussed with via telephone. EMR reviewed: PMH:Afib, aflutter, HTN, CHF, CAD with CABGx2, chronic PE PSH: CABG at [facility]3] (2013, 2016), Left knee surgery Meds: as per via telephone as pt does not know the medications he takes. She endorses: Finateride 5 mg PO QD, tamsulosin 0.4 mg PO QD, Rosuvastatin 40 mg PO QHS, Amioodarone 200 mg PO QD, Linzess 290 mg PO prn. Allx: NKDA FHx: NE and cancer (sister), NE (father) SHx: former smoker, denies Alcohol or drug use. Lives with and daughter. Present on Admission - Present on Admission Any Indicators Present on Admission: Yes History of DVT/PE: Yes Review of Systems - Review of Systems All systems: reviewed and no additional remarkable complaints except (as per HPI) Past Patient History - Infectious Disease Hx of Infectious Diseases: None - Tetanus Immunizations Tetanus Immunization: Unknown - Past Medical History & Family History Past Medical History?: Yes - Past Social History Smoking Status: Never Smoked - CARDIAC Hx Atrial Fibrillation: Yes Hx Hypertension: Yes - HEENT Hx HEENT Problems: No Hx Blind: No Hx Cataracts: No Hx Deafness: No Hx Difficulty Chewing: No Hx Epistaxis: No Hx Glaucoma: No Hx Macular Degeneration: No - INTEGUMENTARY Hx Eczema: No Hx Melanoma: No Hx Psoriasis: No Hx Squamous Cell: No - GENITOURINARY/GYNECOLOGICAL Hx Genitourinary Disorders: Yes - PSYCHIATRIC Hx Substance Use: No - SURGICAL HISTORY Hx Coronary Artery Bypass Graft: Yes (2015) - ANESTHESIA Hx Anesthesia: Yes Hx Anesthesia Reactions: No Hx Malignant Hyperthermia: No Meds Allergies/Adverse Reactions: Allergies Allergy/AdvReac Type Severity Reaction Status Date / Time No Known Allergies Allergy Verified 12/22/18 13:19 Physical Exam - Constitutional Appears: Non-toxic, No Acute Distress - Head Exam Head Exam: ATRAUMATIC, NORMAL INSPECTION - Eye Exam Eye Exam: EOMI, Normal appearance - ENT Exam ENT Exam: Mucous Membranes Moist - Neck Exam Neck exam: Positive for: Normal Inspection - Respiratory Exam Respiratory Exam: Clear to Auscultation Bilateral, NORMAL BREATHING PATTERN. absent: Rales, Rhonchi, Wheezes - Cardiovascular Exam Cardiovascular Exam: REGULAR RHYTHM, +S1, +S2 Additional comments: sterniotomy scar - GI/Abdominal Exam GI & Abdominal Exam: Normal Bowel Sounds, Soft. absent: Distended, Firm, Guarding, Rebound, Rigid, Tenderness - Extremities Exam Extremities exam: Positive for: normal capillary refill, normal inspection, pedal pulses present. Negative for: calf tenderness, pedal edema Additional comments: (+) clubbing of the fingers - Back Exam Back exam: NORMAL INSPECTION - Neurological Exam Neurological exam: Alert, Oriented x3 - Psychiatric Exam Psychiatric exam: Normal Affect, Normal Mood - Skin Skin Exam: Dry, Normal Color, Warm Results - Vital Signs Recent Vital Signs: Last Vital Signs Temp 97 F L 12/22/18 13:20 Pulse 65 12/22/18 15:38 Resp 18 12/22/18 15:38 BP 150/83 12/22/18 15:38 Pulse Ox 94 L 12/22/18 15:54 - Labs Result Diagrams: 12/22/18 14:55 12/22/18 14:55 Labs: Laboratory Results - last 24 hr 12/22/18 12/22/18 12/22/18 14:55 14:55 14:55 WBC 7.0 RBC 4.69 Hgb 14.4 Hct 44.1 MCV 94.1 H D MCH 30.7 MCHC 32.6 L RDW 13.3 Plt Count 156 MPV 9.9 Neut % (Auto) 70.1 Lymph % (Auto) 18.6 L Warrick % (Auto) 8.9 Eos % (Auto) 2.0 Baso % (Auto) 0.4 Neut # (Auto) 4.9 Lymph # (Auto) 1.3 Warrick # (Auto) 0.6 Eos # (Auto) 0.1 Baso # (Auto) 0.0 PT 20.8 H INR 1.9 APTT 39 H Sodium 136 Potassium 4.1 Chloride 103 Carbon Dioxide 25 Anion Gap 12 BUN 20 Creatinine 1.1 Est GFR ( Amer) > 60 Est GFR (Non-Af Amer) > 60 Random Glucose 90 Calcium 9.2 Total Bilirubin 0.5 AST 41 ALT 23 Alkaline Phosphatase 59 Total Creatine Kinase 114 CK-MB (Mass) 1.32 Troponin I < 0.0120 NT-Pro-B Natriuret Pep 168 Total Protein 7.1 Albumin 4.6 Globulin 2.5 Albumin/Globulin Ratio 1.9 Assessment & Plan - Assessment and Plan (Free Text) Assessment: This is a 78 year old female with PMH of Afib, aflutter, HTN, CHF, CAD (NE x2) with CABGx2, chronic PE (on xarelto) who presents with dyspnea on exertion for the past few months, worsening over the past 2 days. Pt is a poor historian. Pt states that he has been unable to walk 1 block or go up on flight of stairs without getting short of breath. Denies chest pain, headache, dizziness, lightheadedness, visual changes, abdominal pain, n/v/d, fever, chills, cough, recent travel, prolonged immobilization. Plan: Chest pain with dyspnea on exertion Tele monitor CXR shows Medial right upper lobe may reflex atelectasis or pneumonia. Mild left basilar atelectasis. biapical pleural thickening. Borderline cardiomegaly. Ectatic aorta with athersclerotic calcifications. Median sternotomy wires. Chest CT without contrast ordered troponin x1 is negative, will trend q6h x2 with EKGs EKG shows NSR at 61, no acute STTW changes O2 via IN prn Cardiology, Dr. Arenas, consulted F/u echocardiogram Hx of Afib/Aflutter Pt is NSR at this time Pt is on Xarelto 20 mg PO daily Continue home Amiodarine 200 mg PO daily F/u T4, TSH in am Hx of chronic PE Pt is on Xarelto 20 mg PO daily Hx of CAD with CABG Pt's medications needs to be verified with [facility] and/or PMD/cardiology Pt is bradycardic on the monitor, but asymptomatic Crestor 40 mg PO QHS F/u lipid panel in am Hx of CHF Does not seem to be fluid overloaded at this time May consider lasix in the future Confirm meds in am with pharmacy and/or PMD/cardio as pt is not on HF meds F/u echcardiogram Hx of BPH Continue home tamsulosin 0.4 mg PO QD, Finasteride 5 mg PO QD PPx: No indication for GI ppx VTE CI as pt is on Xarelto, SCDs HHD Dispo: admit to tele obs. F/u cardiology recs. F/u with pt pharmacy for full medication list. <Mary Mcneal - Last Filed: 12/24/18 20:20> Results - Vital Signs Recent Vital Signs: Last Vital Signs Temp 97.4 F L 12/24/18 15:54 Pulse 70 12/24/18 16:06 Resp 20 12/24/18 15:54 BP 123/81 12/24/18 15:54 Pulse Ox 98 12/24/18 15:54 - Labs Result Diagrams: 12/24/18 07:27 12/24/18 07:27 Labs: Laboratory Results - last 24 hr 12/24/18 12/24/18 07:27 07:27 WBC 7.3 RBC 4.95 Hgb 15.3 Hct 46.2 MCV 93.3 MCH 30.9 MCHC 33.1 RDW 13.0 Plt Count 174 MPV 9.8 Neut % (Auto) 62.2 Lymph % (Auto) 26.1 Warrick % (Auto) 8.5 Eos % (Auto) 2.7 Baso % (Auto) 0.5 Neut # (Auto) 4.5 Lymph # (Auto) 1.9 Warrick # (Auto) 0.6 Eos # (Auto) 0.2 Baso # (Auto) 0.0 Sodium 137 Potassium 4.1 Chloride 102 Carbon Dioxide 27 Anion Gap 12 BUN 18 Creatinine 1.2 Est GFR ( Amer) > 60 Est GFR (Non-Af Amer) 59 Random Glucose 97 Calcium 9.4 Phosphorus 3.5 Magnesium 2.2 Total Bilirubin 0.6 AST 30 ALT 18 L D Alkaline Phosphatase 62 Total Protein 7.4 Albumin 4.6 Globulin 2.7 Albumin/Globulin Ratio 1.7 Attending/Attestation - Attestation I have personally seen and examined this patient.: Yes I have fully participated in the care of the patient.: Yes I have reviewed all pertinent clinical information: Yes Notes (Text): This is a 78 years old male with history of pulmonary embolism, atrial fibrillation, status post CABG and prostate hypertrophy came to emergency room for chest pain and shortness of breath on exertion. Patient denies fever, denies cough, denies nausea vomiting denies ,abdominal pain and denies diarrhea. Patient was seen and examined in the emergency room with resident. Medication list obtained from his family. They will admit him to telemetry unit. Continue his home meds, do an echocardiogram, 3 sets of troponin and do a CT chest Assessment and plan discussed with the resident and I agree with the documentation.
[2018-12-22] MEDS ORDERED: Influenza Vaccine 60 mcg/0.5 mL SYR (4YR UP) IM ONE (20:08)
[2018-12-22 22:38] LABS: CK-MB 1.02 ng/mL (0.0-3.38); TROPONIN I 0.017 ng/mL (0.00-0.120)
[2018-12-23 00:42] VITALS: RESP 20
[2018-12-23 06:24] LABS: BASO # 0.1 K/uL (0.0-0.2); BASO % 0.8 % (0.0-2.0); EOS # 0.2 K/uL (0.0-0.7); EOS % 3.2 % (0.0-4.0); HEMOGLOBIN 14.2 g/dL (12.0-18.0); LYMPH # 1.7 K/uL (1.0-4.3); MEAN CELL VOLUME 92.5 fL (80.0-94.0); MEAN CORPUSCULAR HEMOGLOBIN 30.6 pg (27.0-31.0); MEAN CORPUSCULAR HGB CONC 33.1 g/dL (33.0-37.0); MEAN PLATELET VOLUME 9.4 fL (7.2-11.7); MONO # 0.6 K/uL (0.0-0.8); MONO % 8.3 % (0.0-10.0); NEUT # 4.8 K/uL (1.8-7.0); NEUT % 64.7 % (50.0-75.0); NRBC % 0.1 % (0.0-2.0); RBC 4.64 Mil/uL (4.40-5.90); RED CELL DISTRIBUTION WIDTH 13.2 % (11.5-14.5); WHITE BLOOD COUNT 7.5 K/uL (4.8-10.8)
[2018-12-23 06:45] LABS: LDL CHOLESTEROL 70 mg/dL (0-129)
[2018-12-23 06:46] LABS: CK-MB 1.05 ng/mL (0.0-3.38)
[2018-12-23 06:52] LABS: ALB/GLOB RATIO 1.8 (1.0-2.1); ALBUMIN 4.2 g/dL (3.5-5.0); ALT/SGPT 23 U/L (21-72); AST/SGOT 27 U/L (17-59); BLOOD UREA NITROGEN 17 mg/dL (9-20); CALCIUM 8.9 mg/dl (8.6-10.4); GFR NON-AFRICAN AMERICAN 59; HDL CHOLESTEROL 62 mg/dL (30-70)
--- NOTE | 2018-12-23 11:43 | CT ---
Date of service: 12/23/2018 PROCEDURE: CT Chest without contrast HISTORY: r/o infiltrate COMPARISON: CT PE 06/23/2016 TECHNIQUE: Contiguous axial images were obtained through the chest without intravenous contrast enhancement. Sagittal and coronal reconstructions were performed. Radiation dose: Total exam DLP = 462.94 mGy-cm. This CT exam was performed using one or more of the following dose reduction techniques: Automated exposure control, adjustment of the mA and/or kV according to patient size, and/or use of iterative reconstruction technique. FINDINGS: LUNGS: Focal area of scarring and bronchiectasis noted in the right upper lobe, unchanged. Emphysematous changes noted, greatest in the bilateral upper lobes. The trachea and major segmental bronchi are patent. Mild left basilar atelectasis. MEDIASTINUM: Thoracic aorta is normal in caliber and contains mild scattered atherosclerotic calcification of the arch. Heart size is within normal limits. Main pulmonary artery appears normal in size. There is no significant axillary or mediastinal lymphadenopathy. Evaluation for hilar lymphadenopathy is limited without IV contrast. PLEURA: No pleural effusion is identified. BONES: Median sternotomy wires noted. Degenerative changes noted of the spine. Old healed bilateral rib fractures noted. UPPER ABDOMEN: There is a 1.3 cm cyst in the left lobe liver. Partially visualized right renal hypodensity, incompletely evaluated on this exam. Remainder of the visualized upper abdominal viscera are grossly unremarkable. OTHER FINDINGS: Mild bilateral gynecomastia. IMPRESSION: Emphysematous changes. Mild left basilar atelectasis. Additional findings as above.
[2018-12-23] MEDS: Metoprolol Succinate 25 mg XL Tab PO SCH (12:30)
--- NOTE | 2018-12-23 16:12 | CP.PCM.PN ---
<Matt Augustine - Last Filed: 12/23/18 16:07> Subjective - Date & Time of Evaluation Date of Evaluation: 12/23/18 Time of Evaluation: 16:07 - Subjective Subjective: Matt Augustine PGY1 Progress Note for Dr. Mcneal Pt was examined at bedside this morning. He reports resolved chest pain. He reports improvement in his shortness of breath. He wishes to go home. Objective - Vital Signs/Intake and Output Vital Signs (last 24 hours): Temp Pulse Resp BP Pulse Ox 97.7 F 61 20 138/84 97 12/23/18 07:00 12/23/18 07:44 12/23/18 07:00 12/23/18 07:00 12/23/18 07:00 Intake and Output: 12/23/18 12/23/18 06:59 18:59 Intake Total 380 Balance 380 - Medications Medications: Current Medications Amiodarone HCl (Cordarone) 200 mg PO DAILY [facility] Last Admin: 12/23/18 10:23 Dose: 200 mg Finasteride (Proscar) 5 mg PO DAILY [facility] Last Admin: 12/23/18 10:23 Dose: 5 mg Losartan Potassium (Cozaar) 50 mg PO DAILY [facility] Metoprolol Succinate (Toprol Xl) 25 mg PO DAILY [facility] Pneumococcal Polyvalent Vaccine (Pneumovax 23 Vaccine) 0.5 ml IM .ONCE ONE Stop: 12/24/18 10:01 Rivaroxaban (Xarelto) 20 mg PO DAILY [facility] Last Admin: 12/23/18 10:23 Dose: 20 mg Rosuvastatin Calcium (Crestor) 40 mg PO HS [facility] Last Admin: 12/22/18 22:25 Dose: 40 mg Tamsulosin HCl (Flomax) 0.4 mg PO HS [facility] Last Admin: 12/22/18 22:25 Dose: 0.4 mg Zolpidem Tartrate (Ambien) 5 mg PO HS PRN PRN Reason: Insomnia - Labs Labs: 12/23/18 06:13 12/23/18 06:13 PT 20.8 SECONDS (9.7-12.2) H 12/22/18 14:55 INR 1.9 12/22/18 14:55 APTT 39 SECONDS (21-34) H 12/22/18 14:55 - Constitutional Appears: Well, No Acute Distress - Head Exam Head Exam: ATRAUMATIC, NORMOCEPHALIC - Eye Exam Eye Exam: EOMI, Normal appearance, PERRL Pupil Exam: NORMAL ACCOMODATION - ENT Exam ENT Exam: Mucous Membranes Moist - Neck Exam Neck Exam: Normal Inspection - Respiratory Exam Respiratory Exam: Clear to Ausculation Bilateral, NORMAL BREATHING PATTERN. absent: Rales, Rhonchi, Wheezes - Cardiovascular Exam Cardiovascular Exam: REGULAR RHYTHM, +S1, +S2. absent: Gallop, Rubs, Murmur - GI/Abdominal Exam GI & Abdominal Exam: Soft, Normal Bowel Sounds. absent: Distended, Tenderness - Extremities Exam Extremities Exam: Normal Inspection - Back Exam Back Exam: absent: CVA tenderness (L), CVA tenderness (R) - Neurological Exam Neurological Exam: Alert, Awake, CN II-XII Intact, Oriented x3 - Psychiatric Exam Psychiatric exam: Normal Affect, Normal Mood - Skin Skin Exam: Normal Color Assessment and Plan - Assessment and Plan (Free Text) Assessment: This is a 78 year old female with PMH of Afib, aflutter, HTN, CHF, CAD ([place] x2) with CABGx2, chronic PE (on xarelto) who presents with dyspnea on exertion for the past few months, worsening over the past 2 days, admitted for chest pain r/o ACS. Awaiting ECHO read and cardio eval. Plan: Chest pain with dyspnea on exertion improved CXR: Medial right upper lobe may reflex atelectasis or pneumonia. Mild left basilar atelectasis. biapical pleural thickening. Borderline cardiomegaly. Ectatic aorta with athersclerotic calcifications. Median sternotomy wires. CT Chest: emphysematous changes, mild L basilar atelectasis troponins neg x3 EKG shows NSR at 61, no acute STTW changes O2 via NC prn saturating well Cardiology, Dr. Arenas, consulted - f/u recs ECHO performed, f/u reading Hx of Afib/Aflutter EKG: NSR at this time Xarelto 20 mg PO daily Amiodarone 200 mg PO daily Toprol XL 25mg PO daily Hx of chronic PE Xarelto 20 mg PO daily Hx of CAD with CABG Crestor 40 mg PO QHS lipid panel unremarkable Hx of CHF Cozaar 25mg PO daily Toprol XL 25mg PO daily ECHO performed, f/u reading Hx of BPH tamsulosin 0.4 mg PO QD Finasteride 5 mg PO QD PPx: No indication for GI ppx VTE CI as pt is on Xarelto, SCDs HHD PT/OT Dispo: awaiting ECHO read and cardio recs Pt seen and case discussed with Dr. Mcneal <Mary Mcneal - Last Filed: 12/24/18 20:14> Objective - Vital Signs/Intake and Output Vital Signs (last 24 hours): Temp Pulse Resp BP Pulse Ox 97.4 F L 70 20 123/81 98 12/24/18 15:54 12/24/18 16:06 12/24/18 15:54 12/24/18 15:54 12/24/18 15:54 - Medications Medications: Current Medications Finasteride (Proscar) 5 mg PO DAILY [facility] Last Admin: 12/24/18 09:39 Dose: 5 mg Losartan Potassium (Cozaar) 50 mg PO DAILY [facility] Last Admin: 12/24/18 10:51 Dose: 50 mg Metoprolol Succinate (Toprol Xl) 25 mg PO DAILY [facility] Last Admin: 12/24/18 09:40 Dose: 25 mg Rivaroxaban (Xarelto) 20 mg PO DAILY [facility] Last Admin: 12/24/18 09:39 Dose: 20 mg Rosuvastatin Calcium (Crestor) 40 mg PO HS [facility] Last Admin: 12/23/18 21:16 Dose: 40 mg Tamsulosin HCl (Flomax) 0.4 mg PO HS [facility] Last Admin: 12/23/18 21:21 Dose: 0.4 mg Zolpidem Tartrate (Ambien) 5 mg PO HS PRN PRN Reason: Insomnia Last Admin: 12/23/18 21:14 Dose: 5 mg - Labs Labs: 12/24/18 07:27 12/24/18 07:27 PT 20.8 SECONDS (9.7-12.2) H 12/22/18 14:55 INR 1.9 12/22/18 14:55 APTT 39 SECONDS (21-34) H 12/22/18 14:55 Attending/Attestation - Attestation I have personally seen and examined this patient.: Yes I have fully participated in the care of the patient.: Yes I have reviewed all pertinent clinical information, including history, physical exam and plan: Yes Notes (Text): Patient was seen and examined with the resident. His shortness of breath improved. Denies chest pain. He is in sinus rhythm without EKG ischemic changes. Troponin normal. CT scan shows emphysematous changes. Follow echocardiogram, continue his home medication amiodarone Toprol-XL, Xarelto and Cozaar We will follow family psychologist recommendation.
[2018-12-24 07:37] LABS: BASO % 0.5 % (0.0-2.0); EOS # 0.2 K/uL (0.0-0.7); EOS % 2.7 % (0.0-4.0); HEMOGLOBIN 15.3 g/dL (12.0-18.0); LYMPH # 1.9 K/uL (1.0-4.3); LYMPH % 26.1 % (20.0-40.0); MEAN CELL VOLUME 93.3 fL (80.0-94.0); MEAN CORPUSCULAR HEMOGLOBIN 30.9 pg (27.0-31.0); MEAN CORPUSCULAR HGB CONC 33.1 g/dL (33.0-37.0); MEAN PLATELET VOLUME 9.8 fL (7.2-11.7); MONO # 0.6 K/uL (0.0-0.8); MONO % 8.5 % (0.0-10.0); NEUT # 4.5 K/uL (1.8-7.0); NEUT % 62.2 % (50.0-75.0); RBC 4.95 Mil/uL (4.40-5.90); WHITE BLOOD COUNT 7.3 K/uL (4.8-10.8)
[2018-12-24 08:04] LABS: ALB/GLOB RATIO 1.7 (1.0-2.1); ALBUMIN 4.6 g/dL (3.5-5.0); ALT/SGPT 18 U/L (21-72); AST/SGOT 30 U/L (17-59); BLOOD UREA NITROGEN 18 mg/dL (9-20); CALCIUM 9.4 mg/dl (8.6-10.4); GFR NON-AFRICAN AMERICAN 59
[2018-12-24] MEDS: Metoprolol Succinate 25 mg XL Tab PO SCH (09:40)
[2018-12-24] MEDS ORDERED: Pneumococcal 23-Valent Vaccine IM ONE (10:00)
--- NOTE | 2018-12-24 14:58 | CP.PCM.PN ---
<Matt Augustine - Last Filed: 12/24/18 14:55> Subjective - Date & Time of Evaluation Date of Evaluation: 12/24/18 Time of Evaluation: 14:56 - Subjective Subjective: Matt Augustine PGY1 Progress Note for Dr. Mcneal Pt was examined at bedside this morning. He says he feels well, denying chest pain or shortness of breath. Objective - Vital Signs/Intake and Output Vital Signs (last 24 hours): Temp Pulse Resp BP Pulse Ox 97.4 F L 76 20 108/69 98 12/24/18 07:00 12/24/18 07:00 12/24/18 07:00 12/24/18 07:00 12/24/18 07:00 Intake and Output: 12/24/18 12/24/18 06:59 18:59 Intake Total 400 Balance 400 - Medications Medications: Current Medications Finasteride (Proscar) 5 mg PO DAILY [facility] Last Admin: 12/24/18 09:39 Dose: 5 mg Losartan Potassium (Cozaar) 50 mg PO DAILY [facility] Last Admin: 12/24/18 10:51 Dose: 50 mg Metoprolol Succinate (Toprol Xl) 25 mg PO DAILY [facility] Last Admin: 12/24/18 09:40 Dose: 25 mg Rivaroxaban (Xarelto) 20 mg PO DAILY [facility] Last Admin: 12/24/18 09:39 Dose: 20 mg Rosuvastatin Calcium (Crestor) 40 mg PO HS [facility] Last Admin: 12/23/18 21:16 Dose: 40 mg Tamsulosin HCl (Flomax) 0.4 mg PO HS [facility] Last Admin: 12/23/18 21:21 Dose: 0.4 mg Zolpidem Tartrate (Ambien) 5 mg PO HS PRN PRN Reason: Insomnia Last Admin: 12/23/18 21:14 Dose: 5 mg - Labs Labs: 12/24/18 07:27 12/24/18 07:27 PT 20.8 SECONDS (9.7-12.2) H 12/22/18 14:55 INR 1.9 12/22/18 14:55 APTT 39 SECONDS (21-34) H 12/22/18 14:55 - Additional Findings Additional findings: - Constitutional Appears: Well, No Acute Distress - Head Exam Head Exam: ATRAUMATIC, NORMOCEPHALIC - Eye Exam Eye Exam: EOMI, Normal appearance, PERRL Pupil Exam: NORMAL ACCOMODATION - ENT Exam ENT Exam: Mucous Membranes Moist - Neck Exam Neck Exam: Normal Inspection - Respiratory Exam Respiratory Exam: Clear to Ausculation Bilateral, NORMAL BREATHING PATTERN. absent: Rales, Rhonchi, Wheezes - Cardiovascular Exam Cardiovascular Exam: REGULAR RHYTHM, +S1, +S2. absent: Gallop, Rubs, Murmur - GI/Abdominal Exam GI & Abdominal Exam: Soft, Normal Bowel Sounds. absent: Distended, Tenderness - Extremities Exam Extremities Exam: Normal Inspection - Back Exam Back Exam: absent: CVA tenderness (L), CVA tenderness (R) - Neurological Exam Neurological Exam: Alert, Awake, CN II-XII Intact, Oriented x3 - Psychiatric Exam Psychiatric exam: Normal Affect, Normal Mood - Skin Skin Exam: Normal Color Assessment and Plan - Assessment and Plan (Free Text) Assessment: This is a 78 year old female with PMH of Afib, aflutter, HTN, CHF, CAD ([place] x2) with CABGx2, chronic PE (on xarelto) who presents with dyspnea on exertion for the past few months, worsening over the past 2 days, admitted for chest pain r/o ACS. Awaiting ECHO read and cardio eval. Plan: Chest pain with dyspnea on exertion improved CXR: Medial right upper lobe may reflex atelectasis or pneumonia. Mild left basilar atelectasis. biapical pleural thickening. Borderline cardiomegaly. Ectatic aorta with athersclerotic calcifications. Median sternotomy wires. CT Chest: emphysematous changes, mild L basilar atelectasis troponins neg x3 EKG shows NSR at 61, no acute STTW changes O2 via NC prn saturating well tele monitoring Cardiology, Dr. Arenas, consulted - f/u recs ECHO performed, f/u reading Hx of Afib/Aflutter EKG: NSR at this time Xarelto 20 mg PO daily d/c Amiodarone 200 mg PO daily Toprol XL 25mg PO daily Hx of chronic PE Xarelto 20 mg PO daily Hx of CAD with CABG Crestor 40 mg PO QHS lipid panel unremarkable Hx of CHF Cozaar 25mg PO daily Toprol XL 25mg PO daily ECHO performed, f/u reading Hx of BPH tamsulosin 0.4 mg PO QD Finasteride 5 mg PO QD PPx: No indication for GI ppx VTE CI as pt is on Xarelto, SCDs HHD PT/OT Dispo: awaiting ECHO read and cardio recs Pt seen and case discussed with Dr. Mcneal <Mary Mcneal - Last Filed: 12/24/18 20:10> Objective - Vital Signs/Intake and Output Vital Signs (last 24 hours): Temp Pulse Resp BP Pulse Ox 97.4 F L 70 20 123/81 98 12/24/18 15:54 12/24/18 16:06 12/24/18 15:54 12/24/18 15:54 12/24/18 15:54 - Medications Medications: Current Medications Finasteride (Proscar) 5 mg PO DAILY [facility] Last Admin: 12/24/18 09:39 Dose: 5 mg Losartan Potassium (Cozaar) 50 mg PO DAILY [facility] Last Admin: 12/24/18 10:51 Dose: 50 mg Metoprolol Succinate (Toprol Xl) 25 mg PO DAILY [facility] Last Admin: 12/24/18 09:40 Dose: 25 mg Rivaroxaban (Xarelto) 20 mg PO DAILY [facility] Last Admin: 12/24/18 09:39 Dose: 20 mg Rosuvastatin Calcium (Crestor) 40 mg PO HS [facility] Last Admin: 12/23/18 21:16 Dose: 40 mg Tamsulosin HCl (Flomax) 0.4 mg PO HS [facility] Last Admin: 12/23/18 21:21 Dose: 0.4 mg Zolpidem Tartrate (Ambien) 5 mg PO HS PRN PRN Reason: Insomnia Last Admin: 12/23/18 21:14 Dose: 5 mg - Labs Labs: 12/24/18 07:27 12/24/18 07:27 PT 20.8 SECONDS (9.7-12.2) H 12/22/18 14:55 INR 1.9 12/22/18 14:55 APTT 39 SECONDS (21-34) H 12/22/18 14:55 Attending/Attestation - Attestation I have personally seen and examined this patient.: Yes I have fully participated in the care of the patient.: Yes I have reviewed all pertinent clinical information, including history, physical exam and plan: Yes Notes (Text): Patient was seen and examined with the resident. Patient denies chest pain, no shortness of breath. He has exertional shortness of breath. His troponin is normal.EKG with no acute changes, echocardiogram done ,Report pending. Discussed with Dr. Arenas who recommended to discontinue amiodarone and monitor h im overnight. We will continue Toprol-XL Cozaar and Xarelto. Continue telemetry monitoring and follow-up with Dr. Arenas.
--- NOTE | 2018-12-24 22:56 | CP.PCM.CON ---
History of Present Illness - History of Present Illness History of Present Illness: Pt seen and evaluated Denies chest pain and dyspnea Objective - Vital Signs/Intake and Output Vital Signs (last 24 hours): Temp Pulse Resp BP Pulse Ox 97.4 F L 76 20 108/69 98 12/24/18 07:00 12/24/18 07:00 12/24/18 07:00 12/24/18 07:00 12/24/18 07:00 Intake and Output: 12/24/18 12/24/18 06:59 18:59 Intake Total 400 Balance 400 - Medications Medications: Current Medications Finasteride (Proscar) 5 mg PO DAILY [facility] Last Admin: 12/24/18 09:39 Dose: 5 mg Losartan Potassium (Cozaar) 50 mg PO DAILY [facility] Last Admin: 12/24/18 10:51 Dose: 50 mg Metoprolol Succinate (Toprol Xl) 25 mg PO DAILY [facility] Last Admin: 12/24/18 09:40 Dose: 25 mg Rivaroxaban (Xarelto) 20 mg PO DAILY [facility] Last Admin: 12/24/18 09:39 Dose: 20 mg Rosuvastatin Calcium (Crestor) 40 mg PO HS [facility] Last Admin: 12/23/18 21:16 Dose: 40 mg Tamsulosin HCl (Flomax) 0.4 mg PO HS [facility] Last Admin: 12/23/18 21:21 Dose: 0.4 mg Zolpidem Tartrate (Ambien) 5 mg PO HS PRN PRN Reason: Insomnia Last Admin: 12/23/18 21:14 Dose: 5 mg - Labs Labs: 12/24/18 07:27 12/24/18 07:27 PT 20.8 SECONDS (9.7-12.2) H 12/22/18 14:55 INR 1.9 12/22/18 14:55 APTT 39 SECONDS (21-34) H 12/22/18 14:55 - Additional Findings Additional findings: - Constitutional Appears: Well, No Acute Distress - Head Exam Head Exam: ATRAUMATIC, NORMOCEPHALIC - Eye Exam Eye Exam: EOMI, Normal appearance, PERRL Pupil Exam: NORMAL ACCOMODATION - ENT Exam ENT Exam: Mucous Membranes Moist - Neck Exam Neck Exam: Normal Inspection - Respiratory Exam Respiratory Exam: Clear to Ausculation Bilateral, NORMAL BREATHING PATTERN. absent: Rales, Rhonchi, Wheezes - Cardiovascular Exam Cardiovascular Exam: REGULAR RHYTHM, +S1, +S2. absent: Gallop, Rubs, Murmur - GI/Abdominal Exam GI & Abdominal Exam: Soft, Normal Bowel Sounds. absent: Distended, Tenderness - Extremities Exam Extremities Exam: Normal Inspection - Back Exam Back Exam: absent: CVA tenderness (L), CVA tenderness (R) - Neurological Exam Neurological Exam: Alert, Awake, CN II-XII Intact, Oriented x3 - Psychiatric Exam Psychiatric exam: Normal Affect, Normal Mood - Skin Skin Exam: Normal Color Assessment and Plan - Assessment and Plan (Free Text) Assessment: This is a 78 year old female with PMH of Afib, aflutter, HTN, CHF, CAD ([place] x2) with CABGx2, chronic PE (on xarelto) who presents with dyspnea on exertion for the past few months. Now feels better Plan: Chest pain with dyspnea on exertion improved CXR: Medial right upper lobe may reflex atelectasis or pneumonia. Mild left basilar atelectasis. biapical pleural thickening. Borderline cardiomegaly. Ectatic aorta with athersclerotic calcifications. Median sternotomy wires. CT Chest: emphysematous changes, mild L basilar atelectasis troponins neg x3 EKG shows NSR at 61, no acute STTW changes O2 via NC prn saturating well tele monitoring ECHO: Normal EF Hx of Afib/Aflutter EKG: NSR at this time Xarelto 20 mg PO daily d/c Amiodarone 200 mg PO daily Toprol XL 25mg PO daily Hx of chronic PE Xarelto 20 mg PO daily Hx of CAD with CABG Crestor 40 mg PO QHS lipid panel unremarkable Hx of CHF diastolic CHF Cozaar 25mg PO daily Toprol XL 25mg PO daily Hx of BPH tamsulosin 0.4 mg PO QD Finasteride 5 mg PO QD PPx: No indication for GI ppx VTE CI as pt is on Xarelto, SCDs HHD PT/OT Patient does not to stay Stress test as out patient D/C amiadorone F/U Cardiology in 1 month Past Patient History - Infectious Disease Hx of Infectious Diseases: None - Tetanus Immunizations Tetanus Immunization: Unknown - Past Medical History & Family History Past Medical History?: Yes - Past Social History Smoking Status: Never Smoked - CARDIAC Hx Hypertension: Yes - HEENT Hx HEENT Problems: No Hx Blind: No Hx Cataracts: No Hx Deafness: No Hx Difficulty Chewing: No Hx Epistaxis: No Hx Glaucoma: No Hx Macular Degeneration: No - INTEGUMENTARY Hx Eczema: No Hx Melanoma: No Hx Psoriasis: No Hx Squamous Cell: No - GENITOURINARY/GYNECOLOGICAL Hx Genitourinary Disorders: Yes - PSYCHIATRIC Hx Substance Use: No - SURGICAL HISTORY Hx Coronary Artery Bypass Graft: Yes (2015) - ANESTHESIA Hx Anesthesia: Yes Hx Anesthesia Reactions: No Hx Malignant Hyperthermia: No Meds Allergies/Adverse Reactions: Allergies Allergy/AdvReac Type Severity Reaction Status Date / Time No Known Allergies Allergy Verified 12/22/18 13:19 - Medications Medications: Current Medications Finasteride (Proscar) 5 mg PO DAILY [facility] Last Admin: 12/24/18 09:39 Dose: 5 mg Losartan Potassium (Cozaar) 50 mg PO DAILY [facility] Last Admin: 12/24/18 10:51 Dose: 50 mg Metoprolol Succinate (Toprol Xl) 25 mg PO DAILY [facility] Last Admin: 12/24/18 09:40 Dose: 25 mg Rivaroxaban (Xarelto) 20 mg PO DAILY [facility] Last Admin: 12/24/18 09:39 Dose: 20 mg Rosuvastatin Calcium (Crestor) 40 mg PO HS [facility] Last Admin: 12/24/18 22:06 Dose: 40 mg Tamsulosin HCl (Flomax) 0.4 mg PO HS [facility] Last Admin: 12/24/18 22:06 Dose: 0.4 mg Zolpidem Tartrate (Ambien) 5 mg PO HS PRN PRN Reason: Insomnia Last Admin: 12/23/18 21:14 Dose: 5 mg Results - Vital Signs Recent Vital Signs: Last Vital Signs Temp 97.4 F L 12/24/18 15:54 Pulse 70 12/24/18 16:06 Resp 20 12/24/18 15:54 BP 123/81 12/24/18 15:54 Pulse Ox 98 12/24/18 15:54 - Labs Result Diagrams: 12/24/18 07:27 12/24/18 07:27 Labs: Laboratory Results - last 24 hr 12/24/18 12/24/18 07:27 07:27 WBC 7.3 RBC 4.95 Hgb 15.3 Hct 46.2 MCV 93.3 MCH 30.9 MCHC 33.1 RDW 13.0 Plt Count 174 MPV 9.8 Neut % (Auto) 62.2 Lymph % (Auto) 26.1 [place] % (Auto) 8.5 Eos % (Auto) 2.7 Baso % (Auto) 0.5 Neut # (Auto) 4.5 Lymph # (Auto) 1.9 [place] # (Auto) 0.6 Eos # (Auto) 0.2 Baso # (Auto) 0.0 Sodium 137 Potassium 4.1 Chloride 102 Carbon Dioxide 27 Anion Gap 12 BUN 18 Creatinine 1.2 Est GFR ( Amer) > 60 Est GFR (Non-Af Amer) 59 Random Glucose 97 Calcium 9.4 Phosphorus 3.5 Magnesium 2.2 Total Bilirubin 0.6 AST 30 ALT 18 L D Alkaline Phosphatase 62 Total Protein 7.4 Albumin 4.6 Globulin 2.7 Albumin/Globulin Ratio 1.7
[2018-12-25 08:33] VITALS: BP 120/78; TEMP 97.4
[2018-12-25 08:54] VITALS: PULSE 56
[2018-12-25] MEDS: Metoprolol Succinate 25 mg XL Tab PO SCH (09:10)
[2018-12-25 09:25] LABS: BASO # 0.1 K/uL (0.0-0.2); BASO % 0.6 % (0.0-2.0); EOS # 0.1 K/uL (0.0-0.7); EOS % 1.7 % (0.0-4.0); HEMOGLOBIN 14.9 g/dL (12.0-18.0); LYMPH # 1.6 K/uL (1.0-4.3); MEAN CELL VOLUME 93.4 fL (80.0-94.0); MEAN CORPUSCULAR HEMOGLOBIN 30.9 pg (27.0-31.0); MEAN CORPUSCULAR HGB CONC 33.1 g/dL (33.0-37.0); MEAN PLATELET VOLUME 9.3 fL (7.2-11.7); MONO # 0.5 K/uL (0.0-0.8); MONO % 5.9 % (0.0-10.0); NEUT # 5.7 K/uL (1.8-7.0); NEUT % 71.8 % (50.0-75.0); RBC 4.81 Mil/uL (4.40-5.90); RED CELL DISTRIBUTION WIDTH 13.1 % (11.5-14.5)
[2018-12-25 10:00] LABS: ALB/GLOB RATIO 1.8 (1.0-2.1); ALBUMIN 4.7 g/dL (3.5-5.0); ALT/SGPT 29 U/L (21-72); AST/SGOT 34 U/L (17-59); BLOOD UREA NITROGEN 23 mg/dL (9-20); CALCIUM 9.2 mg/dl (8.6-10.4); GFR NON-AFRICAN AMERICAN 53
--- NOTE | 2018-12-25 11:31 | CARD ---
APPROVED REPORT Date of service: 12/23/2018 EXAM: Two-dimensional and M-mode echocardiogram with Doppler and color Doppler. INDICATION Chest Pain Surgery/Intervention CABD DIMENSIONS IVSd1.0 (0.7-1.1cm)LVDd3.6 (3.9-5.9cm) PWd1.3 (0.7-1.1cm)LA Nwhurr23 (18-58mL) LVDs2.5 (2.5-4.0cm)FS (%) 29.4 % LVEF (%)57.2 (>50%)LVEF (King's)60.22 % Mitral Valve MV E Qkalyeib50.1cm/sMV A Ouaxkuvo07.3cm/sE/A ratio0.9 TDI Lateral E' Peak V8.87cm/sMedial E' Peak V5.32cm/sE/Lateral E'7.0 E/Medial E'11.7 LEFT VENTRICLE The left ventricle is normal size. There is normal left ventricular wall thickness. The left ventricular function is normal. The left ventricular ejection fraction is within the normal range. There is normal LV segmental wall motion. Transmitral Doppler flow pattern is abnormal. RIGHT VENTRICLE The right ventricle is normal size. ATRIA The left atrium size is normal. The right atrium size is normal. AORTIC VALVE The aortic valve is calcified but opens well. MITRAL VALVE Mitral regurgitation is trace to mild. TRICUSPID VALVE There is trace tricuspid regurgitation. <Conclusion> Normal LV systolic function. Diastolic dysfunction. Trace to mild MR. Trace TR. Normal chamber size.
--- NOTE | 2018-12-25 18:57 | CP.PCM.DIS ---
Provider - Provider Date of Admission: 12/22/18 16:41 Attending physician: Mary Mcneal MD Consults: 12/22/18 17:34 Cardiology Consult Routine Comment: Consulting Provider: Steve Arenas Consulting Physician: Steve Arenas Reason for Consult: dyspnea on exertion hx CAD with CABG, afib Time Spent in preparation of Discharge (in minutes): 70 Diagnosis - Discharge Diagnosis (1) Acute chest pain Status: Acute (2) Dyspnea Status: Acute (3) Carotid stenosis Status: Acute (4) CHF exacerbation Status: Acute Hospital Course - Lab Results Lab Results: Most Recent Lab Values WBC 8.0 K/uL (4.8-10.8) 12/25/18 09:17 RBC 4.81 Mil/uL (4.40-5.90) 12/25/18 09:17 Hgb 14.9 g/dL (12.0-18.0) 12/25/18 09:17 Hct 44.9 % (35.0-51.0) 12/25/18 09:17 MCV 93.4 fL (80.0-94.0) 12/25/18 09:17 MCH 30.9 pg (27.0-31.0) 12/25/18 09:17 MCHC 33.1 g/dL (33.0-37.0) 12/25/18 09:17 RDW 13.1 % (11.5-14.5) 12/25/18 09:17 Plt Count 171 K/uL (130-400) 12/25/18 09:17 MPV 9.3 fL (7.2-11.7) 12/25/18 09:17 Neut % (Auto) 71.8 % (50.0-75.0) 12/25/18 09:17 Lymph % (Auto) 20.0 % (20.0-40.0) 12/25/18 09:17 [place] % (Auto) 5.9 % (0.0-10.0) 12/25/18 09:17 Eos % (Auto) 1.7 % (0.0-4.0) 12/25/18 09:17 Baso % (Auto) 0.6 % (0.0-2.0) 12/25/18 09:17 Neut # (Auto) 5.7 K/uL (1.8-7.0) 12/25/18 09:17 Lymph # (Auto) 1.6 K/uL (1.0-4.3) 12/25/18 09:17 [place] # (Auto) 0.5 K/uL (0.0-0.8) 12/25/18 09:17 Eos # (Auto) 0.1 K/uL (0.0-0.7) 12/25/18 09:17 Baso # (Auto) 0.1 K/uL (0.0-0.2) 12/25/18 09:17 PT 20.8 SECONDS (9.7-12.2) H 12/22/18 14:55 INR 1.9 12/22/18 14:55 APTT 39 SECONDS (21-34) H 12/22/18 14:55 Sodium 136 mmol/L (132-148) 12/25/18 09:17 Potassium 4.1 mmol/L (3.6-5.2) 12/25/18 09:17 Chloride 101 mmol/L (98-107) 12/25/18 09:17 Carbon Dioxide 26 mmol/L (22-30) 12/25/18 09:17 Anion Gap 13 (10-20) 12/25/18 09:17 BUN 23 mg/dL (9-20) H 12/25/18 09:17 Creatinine 1.3 mg/dL (0.8-1.5) 12/25/18 09:17 Est GFR ( Amer) > 60 12/25/18 09:17 Est GFR (Non-Af Amer) 53 12/25/18 09:17 Random Glucose 132 mg/dL (75-110) H D 12/25/18 09:17 Calcium 9.2 mg/dl (8.6-10.4) 12/25/18 09:17 Phosphorus 3.1 mg/dL (2.5-4.5) 12/25/18 09:17 Magnesium 1.9 mg/dL (1.6-2.3) 12/25/18 09:17 Total Bilirubin 0.6 mg/dL (0.2-1.3) 12/25/18 09:17 AST 34 U/L (17-59) 12/25/18 09:17 ALT 29 U/L (21-72) 12/25/18 09:17 Alkaline Phosphatase 55 U/L (38-126) 12/25/18 09:17 Total Creatine Kinase 100 U/L (55-170) 12/23/18 06:13 CK-MB (Mass) 1.05 ng/mL (0.0-3.38) 12/23/18 06:13 Troponin I 0.0250 ng/mL (0.00-0.120) 12/23/18 06:13 NT-Pro-B Natriuret Pep 168 pg/mL (0-900) 12/22/18 14:55 Total Protein 7.3 g/dL (6.3-8.3) 12/25/18 09:17 Albumin 4.7 g/dL (3.5-5.0) 12/25/18 09:17 Globulin 2.7 gm/dL (2.2-3.9) 12/25/18 09:17 Albumin/Globulin Ratio 1.8 (1.0-2.1) 12/25/18 09:17 Triglycerides 108 mg/dL (0-149) D 12/23/18 06:13 Cholesterol 136 mg/dL (0-199) 12/23/18 06:13 LDL Cholesterol Direct 70 mg/dL (0-129) 12/23/18 06:13 HDL Cholesterol 62 mg/dL (30-70) 12/23/18 06:13 Free T4 1.01 ng/dL (0.78-2.19) 12/23/18 06:13 TSH 3rd Generation 4.50 mIU/L (0.46-4.68) 12/23/18 06:13 - Hospital Course Hospital Course: Upon Admission This is a 78 year old female with PMH of Afib, aflutter, HTN, CHF, CAD ([place] x2) with CABGx2, chronic PE (on xarelto) who presents with dyspnea on exertion for the past few months, worsening over the past 2 days with chest pain for the past 1 hour. Pt is a poor historian. Pt states that he has been unable to walk 1 block or go up on flight of stairs without getting short of breath. When prompted about the chest pain he is unable to describe it but states that he feels better now. Denies headache, dizziness, lightheadedness, visual changes, abdominal pain, n/v/d, fever, chills, cough, recent travel, prolonged immoblization. Hospital Course: Patient was admitted for chest pain r/o ACS. Diagnosis: 1. Acute Chest pain 2. Dyspnea 3. CAD 4. CHF CXR showed Medial right upper lobe may reflex atelectasis or pneumonia. Mild left basilar atelectasis. biapical pleural thickening. Borderline cardiomegaly. Ectatic aorta with athersclerotic calcifications. Median sternotomy wires. CT Chest showed emphysematous changes, mild L basilar atelectasis troponins neg x3 EKG shows NSR at 61, no acute STTW changes Patient was restarted on home medications ECHO showed normal LV systolic function, diastolic dysfunction, trace to mild MR, trace TR. Cardiology was consulted and recommended d/c amiodarone. PT recommended home. Pt was deemed stable for discharge to home. Upon Discharge: Pt was deemed stable for discharge to home with instructions to follow up with his primary care physician and to take medications as prescribed. Pt understood instructions and agreed. Discharge Exam - Head Exam Head Exam: ATRAUMATIC, NORMOCEPHALIC Discharge Plan - Discharge Medications Prescriptions: Finasteride [Proscar] 5 mg PO DAILY #30 tab Furosemide [Lasix] 20 mg PO DAILY #30 tablet Losartan [Cozaar] 50 mg PO DAILY #30 tab Metoprolol Succinate XL [Toprol XL] 25 mg PO DAILY #30 tab Rivaroxaban [Xarelto] 20 mg PO DAILY #30 tab Rosuvastatin Calcium [Crestor] 40 mg PO HS #30 tab Tamsulosin [Flomax] 0.4 mg PO HS #30 cap Zolpidem [Ambien] 10 mg PO HS #30 tab - Follow Up Plan Condition: GOOD Disposition: HOME/ ROUTINE Instructions: Chest Pain, Shortness of Breath (Dyspnea) (DC), Heart Failure (DC), Heart Failure (GEN), Pacemaker (DC), Pacemaker (GEN), Pulmonary Edema (DC), Pulmonary Edema (GEN), Ascites (DC), Ascites (GEN) Additional Instructions: Please follow up with Dr. Silverio within 1 week. Call to make an appointment. Please follow up with Dr. Arenas, psychologist clinical in 1 month. Call to make an appointment. Please take your medications as prescribed. If symptoms recur, return to the emergency department. Take care and be well. Por favor dhara un seguimiento con el Dr. Silverio dentro de 1 semana. Llame al para hacer david alejandra. Por favor dhara un seguimiento con el Dr. Arenas, cardilogo en 1 mes. Llame al para hacer david alejandra. Por favor, tome ruchi medicamentos segn lo prescrito. Si los sntomas se repiten, regrese al departamento de emergencias. Cudate y sintete chica. Referrals: Steve Arenas MD [Staff Provider] -
--- NOTE | 2018-12-26 22:32 | CARD ---
APPROVED REPORT Date of service: 12/22/2018 EKG Measurement Heart [id number] <Conclusion> Normal sinus rhythm Normal ECG
[2018-12-30 14:00] VITALS: O2SAT 94
== END 2018-12-25 12:16 | disposition home or self-care (01) ==
LOC: C.ER 13:14 → C.6T 16:41
PROVIDERS: ADMIT Internal Medicine; ATTEND Internal Medicine
DX: R07.9 Chest pain, unspecified (principal); I11.0 Hypertensive heart disease with heart failure; I50.9 Heart failure, unspecified; I25.10 Atherosclerotic heart disease of native coronary artery without angina pectoris; I25.2 Old myocardial infarction; I48.91 Unspecified atrial fibrillation; I65.29 Occlusion and stenosis of unspecified carotid artery; I77.819 Aortic ectasia, unspecified site; J98.11 Atelectasis; I27.82 Chronic pulmonary embolism; N40.0 Benign prostatic hyperplasia without lower urinary tract symptoms; Z80.9 Family history of malignant neoplasm, unspecified; Z87.891 Personal history of nicotine dependence; Z95.1 Presence of aortocoronary bypass graft; I48.92 Unspecified atrial flutter; Z23 Encounter for immunization
CPT/HCPCS: 36415; 71045; 71250; 80053; 80061; 82550; 82553; 83735; 83880; 84100; 84439; 84443; 84484; 85025; 85610; 85730; 90732; 93005; 93306; 97116; 97162; 99285; G0009; G0378; G8978; G8979

== ENCOUNTER 2019-01-19 04:33 | Observation (INO) | payer MEDICARE, OTHER ==
[2019-01-19 05:06] LABS: BASO % 0.5 % (0.0-2.0); EOS # 0.2 K/uL (0.0-0.7); EOS % 3.2 % (0.0-4.0); HEMOGLOBIN 15.3 g/dL (12.0-18.0); LYMPH # 1.7 K/uL (1.0-4.3); LYMPH % 22.4 % (20.0-40.0); MEAN CELL VOLUME 92.8 fL (80.0-94.0); MEAN CORPUSCULAR HEMOGLOBIN 30.7 pg (27.0-31.0); MEAN CORPUSCULAR HGB CONC 33.1 g/dL (33.0-37.0); MEAN PLATELET VOLUME 9.1 fL (7.2-11.7); MONO # 0.8 K/uL (0.0-0.8); MONO % 10.3 % (0.0-10.0); NEUT # 4.8 K/uL (1.8-7.0); NEUT % 63.6 % (50.0-75.0); NRBC % 0.1 % (0.0-2.0); WHITE BLOOD COUNT 7.5 K/uL (4.8-10.8)
--- NOTE | 2019-01-19 05:08 | C.PDOC ---
History Of Present Illness 78 year old male with PMH of Afib, aflutter, HTN, CHF, CAD ([place] x2) with CABGx2, chronic PE (on xarelto) presents to the ED c/o SOB that started yesterday at 17:00. Patient reports today his shortness of breath is worse compared to last time he was admitted. Patient was seen on the ED on 12/22, had CXR done which showed Medial right upper lobe may reflex atelectasis or pneumonia. Mild left basilar atelectasis. biapical pleural thickening. Borderline cardiomegaly. Ectatic aorta with athersclerotic calcifications. Median sternotomy wires. Patient also had CT Chest done which showed emphysematous changes, mild L basilar atelectasis. Patient was admitted and discharged home on 12/25, restarted on home medications however patient reports being non compliant with his medications. Patient denies fever, chill, nausea, vomit, diarrhea, rash, dysuria, hematuria. DC 3/3 PMH of Afib, aflutter, HTN, CHF, CAD ([place] x2) with CABGx2, chronic PE (on xarelto) CXR showed Medial right upper lobe may reflex atelectasis or pneumonia. Mild left basilar atelectasis. biapical pleural thickening. Borderline cardiomegaly. Ectatic aorta with athersclerotic calcifications. Median sternotomy wires. CT Chest showed emphysematous changes, mild L basilar atelectasis troponins neg x3 EKG shows NSR at 61, no acute STTW changes Patient was restarted on home medications ECHO showed normal LV systolic function, diastolic dysfunction, trace to mild MR, trace TR. Time Seen by Provider: 01/19/19 04:58 Chief Complaint (Nursing): Shortness Of Breath History Per: Patient History/Exam Limitations: no limitations Onset/Duration Of Symptoms: Days (1) Current Symptoms Are (Timing): Still Present Initiating Event: Upper Respiratory Illness Quality: Tightness Current Respiratory Medications: See Home Med List Recent travel outside of the [place]: No Additional History Per: Patient Past Medical History Reviewed: Historical Data, Nursing Documentation, Vital Signs Vital Signs: Last Vital Signs Temp 97.7 F 01/19/19 04:46 Pulse 96 H 01/19/19 04:46 Resp 14 01/19/19 04:51 BP 121/78 03/28/19 04:46 Pulse Ox 97 01/19/19 04:51 - Medical History PMH: Atrial Fibrillation, Benign Prostatic Hyperplasia, CAD, HTN Surgical History: CABG (2015) - [facility] Procedures CLOSURE SKIN & SUBCUTANEOUS NEC (05/08/14) CORONAR ARTERIOGR-2 CATH (02/04/15) INJECT/INFUSE NEC (02/05/15) INSERTION OF ENDOTRACHEAL AIRWAY INTO TRACHEA, ENDO (04/29/16) INSERTION OF ONE VASCULAR STENT (02/05/15) INSRT OF DRUG-ELUTING CORON ARTERY STENTS(S) (02/05/15) LEFT HEART CARDIAC CATH (02/04/15) LT HEART ANGIOCARDIOGRAM (02/04/15) MEASURE OF CARDIAC SAMPL & PRESSURE, L HEART, PERC APPROACH (04/29/16) PERCUTANEOUS TRANSLUMINAL CORONARY ANGIOPLASTY [PTCA] (02/05/15) PLAIN RADIOGRAPHY OF LEFT HEART USING LOW OSMOLAR CONTRAST (04/29/16) PLAIN RADIOGRAPHY OF MULT COR ART USING L OSM CONTRAST (04/29/16) PROCEDURE ON SINGLE VESSEL (02/05/15) RESPIRATORY VENTILATION, 24-96 CONSECUTIVE HOURS (04/29/16) TETANUS TOXOID ADMINIST (05/08/14) Family History: States: Diabetes - Social History Hx Tobacco Use: Yes (Quit 18 yrs ago) Hx Alcohol Use: No Hx Substance Use: No - Immunization History Hx Tetanus Toxoid Vaccination: No Hx Influenza Vaccination: No Hx Pneumococcal Vaccination: No Review Of Systems Constitutional: Negative for: Fever, Chills Cardiovascular: Negative for: Chest Pain, Palpitations Respiratory: Positive for: Shortness of Breath. Negative for: Cough, Sputum, Wheezing Gastrointestinal: Negative for: Nausea, Vomiting, Abdominal Pain Skin: Negative for: Rash Neurological: Negative for: Weakness, Numbness, Headache, Dizziness Physical Exam - Physical Exam Appears: Non-toxic, No Acute Distress Skin: Normal Color, Warm, Dry Head: Atraumatic, Normacephalic Eye(s): bilateral: Normal Inspection Neck: Normal ROM, Supple Chest: Symmetrical Cardiovascular: Rhythm Regular Respiratory: Normal Breath Sounds, No Rales, No Rhonchi, No Wheezing Gastrointestinal/Abdominal: Soft, No Tenderness Extremity: Normal ROM, No Tenderness, Capillary Refill (< 2 seconds), No Swelling Pulses: Left Dorsalis Pedis: Normal, Right Dorsalis Pedis: Normal Neurological/Psych: Oriented x3, Normal Speech, Normal Cognition Gait: Steady ED Course And Treatment - Laboratory Results Result Diagrams: 01/19/19 05:02 01/19/19 05:02 ECG: Interpreted By Me ECG Rhythm: Sinus Rhythm ECG Interpretation: No Changes From Prior, Abnormal Rate From EC (BPM) O2 Sat by Pulse Oximetry: 97 (On RA) Pulse Ox Interpretation: Normal - Radiology CXR: Interpreted by Me CXR Interpretation: Yes: Other (CHF) Progress - Re-Evaluation Re-evaluation Note: 01/19/19 06:08 NEW RENAL INSUFF, ABN GFR COMPARED TO PRIOR. UNABLE TO COMPLETE CTA 01/19/19 06:17 D/W DR STOVALL REQUESTS DIMER WILL ADMIT - Data Reviewed Data Reviewed: Lab, Diagnostic imaging, EKG, Old records Medical Decision Making Medical Decision Making: Plan: * CTA chest * EKG * Labs * CXR Disposition Counseled Patient/Family Regarding: Studies Performed, Diagnosis - Disposition Disposition: HOSPITALIZED Disposition Time: 06:17 Condition: STABLE Forms: [employer] (Vincentian) - POA Present On Arrival: None - Clinical Impression Clinical Impression: Dyspnea, Acute renal insufficiency - Scribe Statement The provider has reviewed the documentation as recorded by the Scribe Francesco Green All medical record entries made by the Scribe were at my direction and personally dictated by me. I have reviewed the chart and agree that the record accurately reflects my personal performance of the history, physical exam, medical decision making, and the department course for this patient. I have also personally directed, reviewed, and agree with the discharge instructions and disposition.
[2019-01-19 05:41] LABS: TROPONIN I 0.022 ng/mL (0.00-0.120)
[2019-01-19] MEDS ORDERED: Iodixanol 320 mg/ml 150 ml Bottle IV ONE (05:48)
[2019-01-19 06:04] LABS: ALB/GLOB RATIO 1.7 (1.0-2.1); ALBUMIN 4.6 g/dL (3.5-5.0); CALCIUM 9.5 mg/dl (8.6-10.4)
[2019-01-19] MEDS ORDERED: Sodium Chloride 0.9% 500 ML IV ONE ×2 (06:38→06:44)
--- NOTE | 2019-01-19 07:28 | RAD ---
Date of service: 01/19/2019 PROCEDURE: CHEST RADIOGRAPH, 1 VIEW HISTORY: chest pain COMPARISON: 12/22/2018 FINDINGS: LUNGS: Inspiration shallow more now than before. Interval increase opacity left lung base PLEURA: Interval increased left pleural effusion-currently small. No pneumothorax CARDIOVASCULAR: There is presence of aortic atherosclerotic calcification on x-ray. Borderline cardiomegaly-similar midline sternotomy coronary artery bypass clips Probable mild pulmonary venous congestion OSSEOUS STRUCTURES: Thoracic spondylosis. Midline sternotomy. Bilateral shoulder arthrosis VISUALIZED UPPER ABDOMEN: Normal. OTHER FINDINGS: None. IMPRESSION: Interval left pleural effusion. Inferred minimal compressive atelectasis-left lung base-an interval change. Other findings as above. .
[2019-01-19] MEDS ORDERED: Sodium Chloride 0.9% 1,000 ML IV SCH (09:00)
--- NOTE | 2019-01-19 09:05 | CP.PCM.HP ---
History of Present Illness - History of Present Illness History of Present Illness: Medicine H&P for Dr. Roche's service CC: SOB HPI: Patient is a 78 yo male w/ PMH of AFib, AFlutter, HTN, diastolic CHF, CAD w x2 LA (2x CABG), chronic PE, and BPH admitted to hospital for acute shortness of breath. Patient reports the shortness of breath started yesterday, progressively got worse. Patient was resting at home when the shortness of breath began. Patient drank water at home which did not help and then his called an ambulance as he continued to be dyspenic. Patient reports he took 3 pills during this time but does not recall which ones and believes they may have "poisoned him". Patient may have slight MCI because he was not answering questions appropriately at times and needed to be redirected. After patient was brought to hospital and put on nasal cannula he began to improve. Currently patient does not complain of shortness of breath. Patient denies fevers, chills, chest pain, palpitations, cough, n/v, constipation or diarrhea, and dysuria. PMH- AFib, AFlutter, HTN, diastolic CHF, CAD w x2 LA (2x CABG), chronic PE, and BPH PSH- Accident (knee surgery), CABGx 2 (most recent 2 years ago) FH- Denies Meds- proscar 5mg daily, tamsulosin 0.4mg po daily, Toprol 25mg daily, Crestor 40mg daily, Losartan 50mg daily, Xarelto 20mg po daily, Lasix 20mg po daily Allergies- NKDA Social- 20 year smoking history during , quit over 10 years ago; denies alcohol and recreational drug use PMD- Dr. Silverio Present on Admission - Present on Admission Any Indicators Present on Admission: No Review of Systems - Review of Systems All systems: reviewed and no additional remarkable complaints except (s) Review of Systems: see HPI Past Patient History - Infectious Disease Hx of Infectious Diseases: None - Tetanus Immunizations Tetanus Immunization: Unknown - Past Medical History & Family History Past Medical History?: Yes - Past Social History Smoking Status: Never Smoked - CARDIAC Hx Atrial Fibrillation: Yes Hx Hypertension: Yes - HEENT Hx HEENT Problems: No Hx Blind: No Hx Cataracts: No Hx Deafness: No Hx Difficulty Chewing: No Hx Epistaxis: No Hx Glaucoma: No Hx Macular Degeneration: No - INTEGUMENTARY Hx Eczema: No Hx Melanoma: No Hx Psoriasis: No Hx Squamous Cell: No - GENITOURINARY/GYNECOLOGICAL Hx Genitourinary Disorders: Yes - PSYCHIATRIC Hx Substance Use: No - SURGICAL HISTORY Hx Coronary Artery Bypass Graft: Yes (2015) - ANESTHESIA Hx Anesthesia: Yes Hx Anesthesia Reactions: No Hx Malignant Hyperthermia: No Meds Allergies/Adverse Reactions: Allergies Allergy/AdvReac Type Severity Reaction Status Date / Time No Known Allergies Allergy Verified 12/22/18 13:19 Physical Exam - Constitutional Appears: Non-toxic, No Acute Distress - Head Exam Head Exam: NORMAL INSPECTION, NORMOCEPHALIC - Eye Exam Eye Exam: EOMI, Normal appearance. absent: Nystagmus, Scleral icterus - ENT Exam ENT Exam: Mucous Membranes Dry - Respiratory Exam Respiratory Exam: Clear to Auscultation Bilateral, NORMAL BREATHING PATTERN. absent: Rales, Rhonchi, Wheezes - Cardiovascular Exam Cardiovascular Exam: REGULAR RHYTHM, +S1, +S2 - GI/Abdominal Exam GI & Abdominal Exam: Normal Bowel Sounds, Soft. absent: Diminished Bowel Sounds, Distended, Firm, Guarding, Tenderness - Extremities Exam Extremities exam: Positive for: normal inspection. Negative for: calf tender ness, pedal edema - Back Exam Back exam: NORMAL INSPECTION. absent: CVA tenderness (L), CVA tenderness (R) - Neurological Exam Neurological exam: Alert, Oriented x3 - Psychiatric Exam Psychiatric exam: Normal Affect, Normal Mood - Skin Skin Exam: Dry, Intact, Normal Color Results - Vital Signs Recent Vital Signs: Last Vital Signs Temp 97.6 F 01/19/19 07:14 Pulse 52 L 01/19/19 07:14 Resp 14 01/19/19 07:14 BP 141/66 01/19/19 07:14 Pulse Ox 97 01/19/19 07:14 - Labs Result Diagrams: 01/19/19 05:02 01/19/19 05:02 Labs: Laboratory Results - last 24 hr 01/19/19 01/19/19 01/19/19 05:02 05:02 06:15 WBC 7.5 RBC 5.00 Hgb 15.3 Hct 46.4 MCV 92.8 MCH 30.7 MCHC 33.1 RDW 13.0 Plt Count 177 MPV 9.1 Neut % (Auto) 63.6 Lymph % (Auto) 22.4 [place] % (Auto) 10.3 H Eos % (Auto) 3.2 Baso % (Auto) 0.5 Neut # (Auto) 4.8 Lymph # (Auto) 1.7 [place] # (Auto) 0.8 Eos # (Auto) 0.2 Baso # (Auto) 0.0 D-Dimer, Quantitative < 200 Sodium 136 Potassium 4.1 Chloride 102 Carbon Dioxide 28 Anion Gap 10 BUN 24 H Creatinine 1.6 H Est GFR ( Amer) 51 Est GFR (Non-Af Amer) 42 Random Glucose 93 D Calcium 9.5 Total Bilirubin 0.7 AST 32 ALT 18 L D Alkaline Phosphatase 63 Troponin I 0.0220 NT-Pro-B Natriuret Pep 339 Total Protein 7.3 Albumin 4.6 Globulin 2.7 Albumin/Globulin Ratio 1.7 Assessment & Plan - Assessment and Plan (Free Text) Assessment: 78 yo male w/ PMH of AFib, AFlutter, HTN, diastolic CHF, CAD w x2 LA (2x CABG), chronic PE, and BPH admitted to hospital for acute shortness of breath. CXR did show left pleural effusion. Chest CT pending. Plan: SOB CXR shows left pleural effusion Chest CT pending Ultrasound of lower extremity pending ABG pending Nasal Cannula 2l Xarelto 20mg po daily Duonebs q6 pancho BreoEllipta daily MARY ANN likely pre-renal Renal US pending NS @ 40mls/hr; repeat BMP pending No CHRISSIE-I or ARB or diuretic currently due to MARY ANN CAD w/ LA and CABG Toprol 25mg po daily Crestor 40mg po daily Held CHRISSIE-I or ARB or diuretic Moderate risk factors for bleeding (ASP mildly contraindicated) History of diastolic CHF Recent Echo EF 57.2 No exacerbation active BNP normal Lasix and ARB held due to MARY ANN Toprol 25mg daily History of HTN Toprol 25mg daily History of BPH Proscar 5mg po daily Tamsulosin 0.4 mg po daily Hx of Afib Xarleto 20mg po daily Toprol 25mg po daily no active afib Hx of chronic PE Xarelto 20mg po daily PPX DVT ppx: Xarelto 20mg po daily GI ppx: not indicated
[2019-01-19] MEDS ORDERED: Fluticasone-Vilanterol 100/25mcg Diskus INH SCH (10:00)
--- NOTE | 2019-01-19 10:39 | CT ---
Date of service: 01/19/2019 PROCEDURE: CT Chest with contrast (Pulmonary Angiogram) HISTORY: SOB r/o PE COMPARISON: 12/23/2018 TECHNIQUE: Axial computed tomography images were obtained of the chest in the pulmonary arterial phase of enhancement. Coronal and sagittal reformatted images were created and reviewed. Intravenous contrast dose: 100 mL of Visipaque 320 Radiation dose: Total exam DLP = 519.55 mGy-cm. This CT exam was performed using one or more of the following dose reduction techniques: Automated exposure control, adjustment of the mA and/or kV according to patient size, and/or use of iterative reconstruction technique. FINDINGS: PULMONARY ARTERIES: No central or segmental pulmonary emboli noted. AORTA: No acute findings. No thoracic aortic aneurysm. There is presence of aortic atherosclerotic calcification-however no marked or prominent appearing mural plaque on cross sectional studies. LUNGS: Scarring at the right upper lobe along with bronchiectasis is similar in appearance. Scattered areas compatible with emphysematous changes most pronounced in the mid and upper lobes. No nodule, mass or pulmonary consolidation. PLEURAL SPACES: Unremarkable. No effusion or pneumothorax. HEART: Unremarkable. No cardiomegaly. No significant pericardial effusion. LYMPH NODES: No lymphadenopathy. BONES, CHEST WALL: Degenerative changes. Midline sternotomy.. No fracture or destructive lesion OTHER FINDINGS: What appears to be the gallbladder is anterior to the right hepatic margin. Near the hepatic dome a approximately 1 cm left hepatic lobe hypodensity compatible with a left intrahepatic cysts is suggested this is similar. The previously referenced right renal mass is difficult to identify on this exam due to its mostly exclusion from the field of view of this study. Please note the subsequent renal ultrasound study performed 01/19/2019 IMPRESSION: No central or segmental pulmonary emboli noted. Right upper lobe fibrotic scarring along with bronchiectasis-similar in appearance. Findings compatible with emphysema mid and upper lung zones-similar in appearance Note is made that the previously referenced right renal mass on the prior CT chest study of 12/23/2018 is not visually included on this field of view. Please note the subsequent renal ultrasound study performed 01/19/2019 Other findings as above. Please note that the pulmonary findings were referenced on the preliminary [place] rad report. The liver findings were not mention.
--- NOTE | 2019-01-19 11:04 | US ---
Date of service: 01/19/2019 PROCEDURE: Ultrasound of the Kidneys HISTORY: rule out obstruction and hydronephrosis COMPARISON: None available. TECHNIQUE: Sonogram of the kidneys. FINDINGS: RIGHT KIDNEY: Measures: 9.6 x 3.7 x 4.0 cm. No obstructing calculus or hydronephrosis. 3.0 x 3.5 x 2.9 cm complex cyst within the upper pole. 1.8 x 1.3 x 1.7 cm solid-appearing nodule within the midpole. LEFT KIDNEY: Measures: 10.6 x 6.0 x 4.2 cm. No obstructing calculus or hydronephrosis. 2.1 x 1.5 x 1.8 cm midpole cyst. OTHER FINDINGS: None. IMPRESSION: 1.8 cm right midpole solid appearing nodule, indeterminate. 3.5 cm right upper pole complex cyst. 2.1 cm left midpole cyst. Recommend further characterization with cross-sectional imaging.
[2019-01-19] MEDS: Metoprolol Succinate 50 mg XL Tab PO SCH (11:28)
--- NOTE | 2019-01-19 12:53 | VASCLAB ---
Date of service: 01/19/2019 PROCEDURE: Lower Extremity Venous Duplex Exam. HISTORY: rule out DVT, noncompliance with meds PRIORS: None. TECHNIQUE: Bilateral common femoral, femoral, popliteal and posterior tibial, peroneal and great saphenous veins were evaluated. Flow was assessed with color Doppler, compressibility, assessment of phasic flow and augmentation response. Report prepared by TIERRA Denis FINDINGS: RIGHT: 1. Common Femoral Vein: 1.1. Compressibility - Fully compressible: Thrombus - None : Flow - Phasic: Augmentation -Normal: Reflux - None. 2. Femoral Vein: 2.1. Compressibility - Fully compressible: Thrombus - None : Flow - Phasic: Augmentation -Normal: Reflux - None. 3. Popliteal Vein: 3.1. Compressibility - Fully compressible: Thrombus - None : Flow - Phasic: Augmentation -Normal: Reflux - None. 4. Posterior Tibial Vein: 4.1. Compressibility - Fully compressible: Thrombus - None: Flow - Phasic: Augmentation -Normal: Reflux - None. 5. Peroneal Vein: 5.1. Compressibility - Fully compressible: Thrombus - None: Flow - Phasic: Augmentation -Normal: Reflux - None. 6. Great Saphenous Vein: 6.1. Compressibility - Fully compressible: Thrombus - None: Flow - Phasic: Augmentation - Normal: Reflux - None. LEFT: 1. Common Femoral Vein: 1.1. Compressibility - Fully compressible: Thrombus - None: Flow - Phasic: Augmentation -Normal: Reflux - None. 2. Femoral Vein: 2.1. Compressibility - Fully compressible: Thrombus - None: Flow - Phasic: Augmentation -Normal: Reflux - None. 3. Popliteal Vein: 3.1. Compressibility - Fully compressible: Thrombus - None : Flow - Phasic: Augmentation -Normal: Reflux - None. 4. Posterior Tibial Vein: 4.1. Compressibility - Fully compressible: Thrombus - None: Flow - Phasic: Augmentation -Normal: Reflux - None. 5. Peroneal Vein: 5.1. Compressibility - Fully compressible: Thrombus - None: Flow - Phasic: Augmentation -Normal: Reflux - None. 6. Great Saphenous Vein (lower) 6.1. Compressibility - Fully compressible: Thrombus - None: Flow - Phasic: Augmentation - Normal: Reflux - None. OTHER FINDINGS: None significant. IMPRESSION: Right: No evidence of deep or superficial vein thrombosis of the right lower extremity. Normal valve function noted of the right side. Left: No evidence of deep or superficial vein thrombosis of the left lower extremity. Normal valve function noted of the left side.
[2019-01-19 13:21] LABS: ABG ALLEN TEST POS; ARTERIAL BLOOD GAS HCO3 24.7 mmol/L (21-28); ARTERIAL BLOOD GAS PCO2 38 mm/Hg (35-45); ARTERIAL BLOOD GAS PH 7.41 (7.35-7.45); ARTERIAL BLOOD GAS PO2 114 mm/Hg (80-100); ARTERIAL BLOOD GAS TCO2 25.3 mmol/L (22-28)
[2019-01-19] MEDS ORDERED: Albuterol-Ipratrop 3 mg / 0.5 (3 ml) UD INH SCH (14:00)
[2019-01-19] MEDS: Docusate-Senna 50 mg-8.6 mg Tab PO SCH (15:22)
--- NOTE | 2019-01-19 15:37 | CP.PCM.CON ---
History of Present Illness - History of Present Illness History of Present Illness: Palliative consult requested by Doctor aJne for goals of care discussion Patient is a 78 yo male admitted from home with [facility]. [facility] on 12/25/18 with PO antibiotics. Per his , patient was not compliant with his meds. This time, patient felt his SOB was worse terrence last time. he drunk some water, still did not feel good and [address] chest on admission significant for emphysma. ECHO showed normal LV funcion. BUN and Earth Science Technical Officer elevated. Diagnosed with new renal insufficiency. Patient is treated empirically. Patient found to have slight MCI and being confused at times. PMH: A fib, HTN, CAD, CABG X 2, chronic PE, on xarelto Soc. Hx: , lives at home, ex smoker Fam. Hx: brother with type of oral cancer, S/P resection Review of Systems - Constitutional Constitutional: absent: As Per HPI, Anorexia, Chills, Daytime Sleepiness, Excessive Sweating, Fatigue, Fever, Frequent Falls, Headache, Increased Appetite, Lethargy, Malaise, Night Sweats, Snoring, Sleep Apnea, Weight Gain, Weight Loss, Weakness, Other - EENT Eyes: absent: As Per HPI, Blind Spots, Blurred Vision, Change in Vision, Decreased Night Vision, Diplopia, Discharge, Dry Eye, Exophthalmos, Floaters, Irritation, Itchy Eyes, Loss of Peripheral Vision, Pain, Photophobia, Requires Corrective Lenses, Sees Flashes, Spots in Vision, Tunnel Vision, Other Visual Disturbances, Loss of Vision, Other Ears: absent: As Per HPI, Decreased Hearing, Ear Discharge, Ear Pain, Tinnitus, Abnormal Hearing, Disequilibrium, Dizziness, Other Nose/Mouth/Throat: absent: As Per HPI, Epistaxis, Nasal Congestion, Nasal Discharge, Nasal Obstruction, Nasal Trauma, Nose Pain, Post Nasal Drip, Sinus Pain, Sinus Pressure, Bleeding Gums, Change in Voice, Dental Pain, Dry Mouth, Dysphagia, Halitosis, Hoarsness, Lip Swelling, Mouth Lesions, Mouth Pain, Odynophagia, Sore Throat, Throat Swelling, Tongue Swelling, Facial Pain, Neck Pain, Neck Mass, Other - Cardiovascular Cardiovascular: Dyspnea on Exertion - Respiratory Respiratory: Dyspnea on Exertion - Gastrointestinal Gastrointestinal: absent: As Per HPI, Abdominal Pain, Belching, Bloating, Change in Bowel Habits, Change in Stool Character, Coffee Ground Emesis, Constipation, Cramping, Diarrhea, Dyspepsia, Dysphagia, Early Satiety, Excessive Flatus, Fecal Incontinence, Heartburn, Hematemesis, Hematochezia, Loose Stools, Melena, Nausea, Odynophagia, Temesmus, Vomiting, Other - Genitourinary Genitourinary: absent: As Per HPI, Change in Urinary Stream, Difficulty Urinating, Dysuria, Flank Pain, Hematuria, Pyuria, Nocturia, Urinary Incontinence, Urinary Frequency, Urinary Hesitance, Urinary Urgency, Voiding Freq/Small Amts, Freq UTI, Hx Renal/Bladder Calculi, Hx /Renal Surgery, Bladder Distension, Other - Musculoskeletal Musculoskeletal: absent: As Per HPI, Abnormal Gait, Arthralgias, Atrophy, Back Pain, Deformity, Joint Swelling, Limited Range of Motion, Loss of Height, Muscle Cramps, Muscle Weakness, Myalgias, Neck Pain, Numbness, Radiating Pain into Limb, Stiffness, Tingling, Other - Integumentary Integumentary: absent: As Per HPI, Acne, Alopecia, Bleeding Lesions, Change in Hair, Change in Nails, Change in Pigmentation, Changing Lesions, Dry Skin, Erythema, Furuncle, Hirsutism, Lesions, New Lesions, Non-Healing Lesions, Janay tosensitivity, Pruritus, Rash, Skin Pain, Skin Ulcer, Sores, Striae, Swelling, Unusual Bruising, Wounds, Jaundice, Other - Neurological Neurological: Confusion - Psychiatric Psychiatric: Anxiety - Endocrine Endocrine: absent: As Per HPI, Change in Body Appearance, Change in Libido, Cold Intolorance, Deepening of Voice, Excessive Sweating, Fatigue, Flushing, Heat Intolorance, Increase in Ring/Shoe/Hat Size, Palpitations, Polydipsia, Polyphagia, Polyuria, Other - Hematologic/Lymphatic Hematologic: Easy Bleeding Past Patient History - Infectious Disease Hx of Infectious Diseases: None - Tetanus Immunizations Tetanus Immunization: Unknown - Past Medical History & Family History Past Medical History?: Yes - Past Social History Smoking Status: Never Smoked - CARDIAC Hx Atrial Fibrillation: Yes Hx Hypertension: Yes - HEENT Hx HEENT Problems: No Hx Blind: No Hx Cataracts: No Hx Deafness: No Hx Difficulty Chewing: No Hx Epistaxis: No Hx Glaucoma: No Hx Macular Degeneration: No - INTEGUMENTARY Hx Eczema: No Hx Melanoma: No Hx Psoriasis: No Hx Squamous Cell: No - GENITOURINARY/GYNECOLOGICAL Hx Genitourinary Disorders: Yes - PSYCHIATRIC Hx Substance Use: No - SURGICAL HISTORY Hx Coronary Artery Bypass Graft: Yes (2015) - ANESTHESIA Hx Anesthesia: Yes Hx Anesthesia Reactions: No Hx Malignant Hyperthermia: No Meds Allergies/Adverse Reactions: Allergies Allergy/AdvReac Type Severity Reaction Status Date / Time No Known Allergies Allergy Verified 12/22/18 13:19 - Medications Medications: Current Medications Albuterol/Ipratropium (Duoneb 3 Mg/0.5 Mg (3 Ml) Ud) 3 ml INH RQ6 [facility] Finasteride (Proscar) 5 mg PO DAILY [facility] Last Admin: 01/19/19 11:29 Dose: 5 mg Fluticasone/Vilanterol (Breo Ellipta 100-25 Mcg Inh) 1 puff INH RQD [facility] Sodium Chloride (Sodium Chloride 0.9%) 1,000 mls @ 40 mls/hr IV .Q24H [facility] Last Admin: 01/19/19 11:29 Dose: 40 mls/hr Metoprolol Succinate (Toprol Xl) 50 mg PO DAILY [facility] Last Admin: 01/19/19 11:28 Dose: 50 mg Rivaroxaban (Xarelto) 20 mg PO DAILY [facility] Last Admin: 01/19/19 11:28 Dose: 20 mg Rosuvastatin Calcium (Crestor) 40 mg PO [facility] Senna/Docusate Sodium (Senokot S 50 Mg-8.6 Mg) 1 tab PO DAILY [facility] Last Admin: 01/19/19 15:22 Dose: 1 tab Tamsulosin HCl (Flomax) 0.4 mg PO DAILY [facility] Last Admin: 01/19/19 11:29 Dose: 0.4 mg Physical Exam - Constitutional Appears: No Acute Distress, Chronically Ill - Head Exam Head Exam: ATRAUMATIC, NORMAL INSPECTION, NORMOCEPHALIC - Eye Exam Eye Exam: EOMI, Normal appearance, PERRL Pupil Exam: NORMAL ACCOMODATION, PERRL - ENT Exam ENT Exam: Mucous Membranes Moist, Normal Exam - Neck Exam Neck exam: Positive for: Normal Inspection - Respiratory Exam Respiratory Exam: Decreased Breath Sounds, Rhonchi, Wheezes, NORMAL BREATHING PATTERN - Cardiovascular Exam Cardiovascular Exam: Bradycardia, Irregular Rhythm - GI/Abdominal Exam GI & Abdominal Exam: Diminished Bowel Sounds, Distended - Rectal Exam Rectal Exam: Deferred - Exam Exam: NORMAL INSPECTION - Extremities Exam Extremities exam: Positive for: normal inspection - Back Exam Back exam: NORMAL INSPECTION - Neurological Exam Neurological exam: Alert, Altered - Psychiatric Exam Psychiatric exam: Flat Affect - Skin Skin Exam: Dry, Intact, Normal Color, Warm Results - Vital Signs Recent Vital Signs: Last Vital Signs Temp 97.6 F 01/19/19 07:14 Pulse 52 L 01/19/19 07:14 Resp 14 01/19/19 07:14 BP 141/66 01/19/19 07:14 Pulse Ox 97 01/19/19 07:14 - Labs Result Diagrams: 01/19/19 05:02 01/19/19 05:02 Labs: Laboratory Results - last 24 hr 01/19/19 01/19/19 01/19/19 05:02 05:02 06:15 WBC 7.5 RBC 5.00 Hgb 15.3 Hct 46.4 MCV 92.8 MCH 30.7 MCHC 33.1 RDW 13.0 Plt Count 177 MPV 9.1 Neut % (Auto) 63.6 Lymph % (Auto) 22.4 [place] % (Auto) 10.3 H Eos % (Auto) 3.2 Baso % (Auto) 0.5 Neut # (Auto) 4.8 Lymph # (Auto) 1.7 [place] # (Auto) 0.8 Eos # (Auto) 0.2 Baso # (Auto) 0.0 D-Dimer, Quantitative < 200 Puncture Site pCO2 pO2 HCO3 ABG pH ABG Total CO2 ABG O2 Saturation ABG Base Excess Juan Test ABG Potassium Glucose Lactate Liter Flow Sodium 136 Potassium 4.1 Chloride 102 Carbon Dioxide 28 Anion Gap 10 BUN 24 H Creatinine 1.6 H Est GFR ( Amer) 51 Est GFR (Non-Af Amer) 42 Random Glucose 93 D Calcium 9.5 Total Bilirubin 0.7 AST 32 ALT 18 L D Alkaline Phosphatase 63 Troponin I 0.0220 NT-Pro-B Natriuret Pep 339 Total Protein 7.3 Albumin 4.6 Globulin 2.7 Albumin/Globulin Ratio 1.7 Arterial Blood Potassium Mycoplasma pneumon IgM 01/19/19 01/19/19 11:49 13:18 WBC RBC Hgb Hct MCV MCH MCHC RDW Plt Count MPV Neut % (Auto) Lymph % (Auto) [place] % (Auto) Eos % (Auto) Baso % (Auto) Neut # (Auto) Lymph # (Auto) [place] # (Auto) Eos # (Auto) Baso # (Auto) D-Dimer, Quantitative Puncture Site Rrad pCO2 38 pO2 114 H HCO3 24.7 ABG pH 7.41 ABG Total CO2 25.3 ABG O2 Saturation 99.0 H ABG Base Excess -0.3 Juan Test Pos ABG Potassium 4.2 Glucose 124 H Lactate 1.1 Liter Flow 2.0 Sodium 130.0 L Potassium Chloride 102.0 Carbon Dioxide Anion Gap BUN Creatinine Est GFR ( Amer) Est GFR (Non-Af Amer) Random Glucose Calcium Total Bilirubin AST ALT Alkaline Phosphatase Troponin I NT-Pro-B Natriuret Pep Total Protein Albumin Globulin Albumin/Globulin Ratio Arterial Blood Potassium 4.2 Mycoplasma pneumon IgM Negative Assessment & Plan - Assessment and Plan (Free Text) Assessment: Palliative consult Full Code, no Advance directive on chart, PPS 50% I reviewed all Medical records, diagnostic studies, examined and interviewed patient in the bed Patient is alert, forgetful, Faroese speaking only, translation used. Patient knew he was at the hospital but no the name of the hospital. Patient did not know what year was it nor who was President. Skin is dry, intact, no wounds, Lungs are congested, prolonged expirations, reports SOB while ambulating, denies sputum production, denies cough. HR 52, irregular rhythm, denies chest pain. Abdomen distended, active bowel sounds, denies constipation. Ambulatory, mild pedal edema. BP 141/66, HR 52, O2Sat 97 BUN 24, Earth Science Technical Officer 15.3 naCl at 40 cc on board I discussed clinical condition with patient. His brother at bed side. During the discussion, patient was not able to give straight answers to simple questions. Patient would talk what was on his mind. Patient's brother at bedside is concerned with patient's mental status. He is concerned that patient is not able to fallow medications orders. Patient has a and home health aid .I suggested his talks to patient's about this concerns. Impression * AMS * Lung congestion * SOB with mobility * Has no decision making capacity * Needs a lot reinforcement with care * Safety issues Suggestion * o2 via [place] * Neb Tx * Consider home O2 * Refer to Frothing Machine Operator * Psych consult * Patient will need assistance at home for regular medication administration * Patient will need constant supervision at home re: safety * Discharge home planing Palliative care will remain on board and fallow up as needed. Advance care planing 30 min
[2019-01-19 16:04] VITALS: PULSE 50; RESP 20
[2019-01-19 16:37] LABS: CALCIUM 9.8 mg/dl (8.6-10.4)
[2019-01-19 18:08] LABS: CK-MB 1.51 ng/mL (0.0-3.38)
[2019-01-19] MEDS: Albuterol-Ipratrop 3 mg / 0.5 (3 ml) UD INH SCH (23:46)
[2019-01-20 02:53] LABS: CK-MB 1.36 ng/mL (0.0-3.38)
[2019-01-20] MEDS: Albuterol-Ipratrop 3 mg / 0.5 (3 ml) UD INH SCH ×4 (03:21→15:50)
--- NOTE | 2019-01-20 07:41 | CP.PCM.PN ---
Objective - Vital Signs/Intake and Output Vital Signs (last 24 hours): Temp Pulse Resp BP Pulse Ox 97.4 F L 50 L 20 147/80 100 01/19/19 23:25 01/19/19 23:25 01/19/19 23:25 01/19/19 23:25 01/19/19 23:25 Intake and Output: 01/20/19 01/20/19 06:59 18:59 Intake Total 510 Balance 510 - Medications Medications: Current Medications Albuterol/Ipratropium (Duoneb 3 Mg/0.5 Mg (3 Ml) Ud) 3 ml INH RQ4 [facility] Last Admin: 01/20/19 03:21 Dose: Not Given Finasteride (Proscar) 5 mg PO DAILY [facility] Last Admin: 01/19/19 11:29 Dose: 5 mg Fluticasone/Vilanterol (Breo Ellipta 100-25 Mcg Inh) 1 puff INH RQD [facility] Metoprolol Succinate (Toprol Xl) 50 mg PO DAILY [facility] Last Admin: 01/19/19 11:28 Dose: 50 mg Rivaroxaban (Xarelto) 20 mg PO DAILY [facility] Last Admin: 01/19/19 11:28 Dose: 20 mg Rosuvastatin Calcium (Crestor) 40 mg PO HS [facility] Last Admin: 01/19/19 21:57 Dose: 40 mg Senna/Docusate Sodium (Senokot S 50 Mg-8.6 Mg) 1 tab PO DAILY [facility] Last Admin: 01/19/19 15:22 Dose: 1 tab Tamsulosin HCl (Flomax) 0.4 mg PO DAILY [facility] Last Admin: 01/19/19 11:29 Dose: 0.4 mg - Labs Labs: 01/19/19 05:02 01/19/19 16:17
[2019-01-20] MEDS ORDERED: Fluticasone-Vilanterol 200/25mcg Diskus INH SCH (08:00)
[2019-01-20 08:06] VITALS: BP 115/70; TEMP 97.9; O2SAT 98
[2019-01-20 08:06] LABS: BASO % 0.3 % (0.0-2.0); EOS # 0.2 K/uL (0.0-0.7); EOS % 2.5 % (0.0-4.0); HEMOGLOBIN 13.7 g/dL (12.0-18.0); MEAN CELL VOLUME 93.2 fL (80.0-94.0); MEAN CORPUSCULAR HEMOGLOBIN 31.3 pg (27.0-31.0); MEAN CORPUSCULAR HGB CONC 33.6 g/dL (33.0-37.0); MEAN PLATELET VOLUME 9.8 fL (7.2-11.7); MONO # 0.7 K/uL (0.0-0.8); MONO % 10.5 % (0.0-10.0); NEUT # 4.6 K/uL (1.8-7.0); NEUT % 70.7 % (50.0-75.0); RBC 4.39 Mil/uL (4.40-5.90); RED CELL DISTRIBUTION WIDTH 13.1 % (11.5-14.5); WHITE BLOOD COUNT 6.5 K/uL (4.8-10.8)
[2019-01-20 08:22] LABS: ALB/GLOB RATIO 1.7 (1.0-2.1); ALBUMIN 3.9 g/dL (3.5-5.0); ALT/SGPT 11 U/L (21-72); AST/SGOT 26 U/L (17-59); BLOOD UREA NITROGEN 17 mg/dL (9-20); CALCIUM 9.1 mg/dl (8.6-10.4); GFR NON-AFRICAN AMERICAN 53; HDL CHOLESTEROL 54 mg/dL (30-70)
[2019-01-20 08:31] LABS: LDL CHOLESTEROL 54 mg/dL (0-129)
[2019-01-20] MEDS: Docusate-Senna 50 mg-8.6 mg Tab PO SCH (09:21)
[2019-01-20] MEDS: Metoprolol Succinate 50 mg XL Tab PO SCH (09:25)
--- NOTE | 2019-01-20 11:07 | CARD ---
APPROVED REPORT Date of service: 01/19/2019 EKG Measurement Heart [id number] <Conclusion> Normal sinus rhythm Septal infarct, age undetermined Abnormal ECG
--- NOTE | 2019-01-20 11:13 | CARD ---
APPROVED REPORT Date of service: 01/19/2019 EKG Measurement Heart [id number] <Conclusion> Sinus bradycardia with frequent premature ventricular complexes Otherwise normal ECG
--- NOTE | 2019-01-20 12:22 | CP.PCM.CON ---
History of Present Illness - History of Present Illness History of Present Illness: Reason for consultation: Shortness of breath/COPD 78-year-old male with history of atrial fibrillation, COPD, diastolic CHF, coronary artery disease status post CABG, chronic pulmonary embolism was admitted with shortness of breath. CAT scan of the chest showed no pulmonary embolism but consistent with COPD and upper lobe scarring. Patient denies cough, denies fever chills, denies chest pain PMH- AFib, AFlutter, HTN, diastolic CHF, CAD w x2 IA (2x CABG), chronic PE, and BPH PSH- Accident (knee surgery), CABGx 2 (most recent 2 years ago) FH- Denies Meds- proscar 5mg daily, tamsulosin 0.4mg po daily, Toprol 25mg daily, Crestor 40mg daily, Losartan 50mg daily, Xarelto 20mg po daily, Lasix 20mg po daily Allergies- NKDA Social- 20 year smoking history during , quit over 10 years ago; denies alcohol and recreational drug use PMD- Dr. Silverio Review of Systems - Review of Systems All systems: reviewed and no additional remarkable complaints except (Shortness of breath) Past Patient History - Infectious Disease Hx of Infectious Diseases: None - Tetanus Immunizations Tetanus Immunization: Unknown - Past Medical History & Family History Past Medical History?: Yes - Past Social History Smoking Status: Never Smoked - CARDIAC Hx Hypertension: Yes - HEENT Hx HEENT Problems: No Hx Blind: No Hx Cataracts: No Hx Deafness: No Hx Difficulty Chewing: No Hx Epistaxis: No Hx Glaucoma: No Hx Macular Degeneration: No - INTEGUMENTARY Hx Eczema: No Hx Melanoma: No Hx Psoriasis: No Hx Squamous Cell: No - GENITOURINARY/GYNECOLOGICAL Hx Genitourinary Disorders: Yes - PSYCHIATRIC Hx Substance Use: No - SURGICAL HISTORY Hx Coronary Artery Bypass Graft: Yes (2015) - ANESTHESIA Hx Anesthesia: Yes Hx Anesthesia Reactions: No Hx Malignant Hyperthermia: No Meds Allergies/Adverse Reactions: Allergies Allergy/AdvReac Type Severity Reaction Status Date / Time No Known Allergies Allergy Verified 12/22/18 13:19 - Medications Medications: Current Medications Albuterol/Ipratropium (Duoneb 3 Mg/0.5 Mg (3 Ml) Ud) 3 ml INH RQ4 [facility] Last Admin: 01/20/19 03:21 Dose: Not Given Finasteride (Proscar) 5 mg PO DAILY [facility] Last Admin: 01/20/19 09:21 Dose: 5 mg Fluticasone/Vilanterol (Breo Ellipta 100-25 Mcg Inh) 1 puff INH RQD [facility] Metoprolol Succinate (Toprol Xl) 50 mg PO DAILY [facility] Last Admin: 01/20/19 09:25 Dose: 50 mg Rivaroxaban (Xarelto) 20 mg PO DAILY [facility] Last Admin: 01/20/19 09:20 Dose: 20 mg Rosuvastatin Calcium (Crestor) 40 mg PO HS [facility] Last Admin: 01/19/19 21:57 Dose: 40 mg Senna/Docusate Sodium (Senokot S 50 Mg-8.6 Mg) 1 tab PO DAILY [facility] Last Admin: 01/20/19 09:21 Dose: 1 tab Tamsulosin HCl (Flomax) 0.4 mg PO DAILY [facility] Last Admin: 01/20/19 09:21 Dose: 0.4 mg Physical Exam - Head Exam Head Exam: ATRAUMATIC, NORMOCEPHALIC - ENT Exam ENT Exam: Mucous Membranes Moist - Respiratory Exam Respiratory Exam: Clear to Auscultation Bilateral - Cardiovascular Exam Cardiovascular Exam: Irregular Rhythm - GI/Abdominal Exam GI & Abdominal Exam: Normal Bowel Sounds, Soft - Extremities Exam Extremities exam: Positive for: normal inspection Results - Vital Signs Recent Vital Signs: Last Vital Signs Temp 97.9 F 01/20/19 07:15 Pulse 50 L 01/20/19 07:15 Resp 20 01/20/19 07:15 BP 115/70 01/20/19 07:15 Pulse Ox 98 01/20/19 07:15 - Labs Result Diagrams: 01/20/19 07:59 01/20/19 07:59 Labs: Laboratory Results - last 24 hr 01/19/19 01/19/19 01/19/19 11:49 13:18 16:17 WBC RBC Hgb Hct MCV MCH MCHC RDW Plt Count MPV Neut % (Auto) Lymph % (Auto) [place] % (Auto) Eos % (Auto) Baso % (Auto) Neut # (Auto) Lymph # (Auto) [place] # (Auto) Eos # (Auto) Baso # (Auto) Puncture Site Rrad pCO2 38 pO2 114 H HCO3 24.7 ABG pH 7.41 ABG Total CO2 25.3 ABG O2 Saturation 99.0 H ABG Base Excess -0.3 Juan Test Pos ABG Potassium 4.2 Sodium 130.0 L 136 Chloride 102.0 103 Glucose 124 H Lactate 1.1 Liter Flow 2.0 Potassium 4.8 Carbon Dioxide 30 Anion Gap 9 L BUN 20 Creatinine 1.4 Est GFR ( Amer) 59 Est GFR (Non-Af Amer) 49 Random Glucose 100 Hemoglobin A1c Calcium 9.8 Total Bilirubin AST ALT Alkaline Phosphatase Total Creatine Kinase CK-MB (Mass) Troponin I Total Protein Albumin Globulin Albumin/Globulin Ratio Triglycerides Cholesterol LDL Cholesterol Direct HDL Cholesterol TSH 3rd Generation Arterial Blood Potassium 4.2 Influenza Typ A,B (EIA) Ur L.pneumophila Ag Mycoplasma pneumon IgM Negative 01/19/19 01/19/19 01/19/19 17:09 17:29 19:08 WBC RBC Hgb Hct MCV MCH MCHC RDW Plt Count MPV Neut % (Auto) Lymph % (Auto) [place] % (Auto) Eos % (Auto) Baso % (Auto) Neut # (Auto) Lymph # (Auto) [place] # (Auto) Eos # (Auto) Baso # (Auto) Puncture Site pCO2 pO2 HCO3 ABG pH ABG Total CO2 ABG O2 Saturation ABG Base Excess Juan Test ABG Potassium Sodium Chloride Glucose Lactate Liter Flow Potassium Carbon Dioxide Anion Gap BUN Creatinine Est GFR ( Amer) Est GFR (Non-Af Amer) Random Glucose Hemoglobin A1c Calcium Total Bilirubin AST ALT Alkaline Phosphatase Total Creatine Kinase 175 H CK-MB (Mass) 1.51 Troponin I < 0.0120 Total Protein Albumin Globulin Albumin/Globulin Ratio Triglycerides Cholesterol LDL Cholesterol Direct HDL Cholesterol TSH 3rd Generation Arterial Blood Potassium Influenza Typ A,B (EIA) Negative for flu a/b Ur L.pneumophila Ag Negative Mycoplasma pneumon IgM 01/20/19 01/20/19 01/20/19 01:09 07:59 07:59 WBC 6.5 RBC 4.39 L Hgb 13.7 Hct 40.9 MCV 93.2 MCH 31.3 H MCHC 33.6 RDW 13.1 Plt Count 160 MPV 9.8 Neut % (Auto) 70.7 Lymph % (Auto) 16.0 L [place] % (Auto) 10.5 H Eos % (Auto) 2.5 Baso % (Auto) 0.3 Neut # (Auto) 4.6 Lymph # (Auto) 1.0 [place] # (Auto) 0.7 Eos # (Auto) 0.2 Baso # (Auto) 0.0 Puncture Site pCO2 pO2 HCO3 ABG pH ABG Total CO2 ABG O2 Saturation ABG Base Excess Juan Test ABG Potassium Sodium 135 Chloride 101 Glucose Lactate Liter Flow Potassium 3.8 Carbon Dioxide 28 Anion Gap 10 BUN 17 Creatinine 1.3 Est GFR ( Amer) > 60 Est GFR (Non-Af Amer) 53 Random Glucose 108 Hemoglobin A1c Calcium 9.1 Total Bilirubin 0.6 AST 26 ALT 11 L D Alkaline Phosphatase 52 Total Creatine Kinase 143 CK-MB (Mass) 1.36 Troponin I < 0.0120 Total Protein 6.2 L Albumin 3.9 Globulin 2.3 Albumin/Globulin Ratio 1.7 Triglycerides 77 D Cholesterol 114 LDL Cholesterol Direct 54 HDL Cholesterol 54 TSH 3rd Generation 2.05 Arterial Blood Potassium Influenza Typ A,B (EIA) Ur L.pneumophila Ag Mycoplasma pneumon IgM 01/20/19 07:59 WBC RBC Hgb Hct MCV MCH MCHC RDW Plt Count MPV Neut % (Auto) Lymph % (Auto) [place] % (Auto) Eos % (Auto) Baso % (Auto) Neut # (Auto) Lymph # (Auto) [place] # (Auto) Eos # (Auto) Baso # (Auto) Puncture Site pCO2 pO2 HCO3 ABG pH ABG Total CO2 ABG O2 Saturation ABG Base Excess Juan Test ABG Potassium Sodium Chloride Glucose Lactate Liter Flow Potassium Carbon Dioxide Anion Gap BUN Creatinine Est GFR ( Amer) Est GFR (Non-Af Amer) Random Glucose Hemoglobin A1c 5.9 Calcium Total Bilirubin AST ALT Alkaline Phosphatase Total Creatine Kinase CK-MB (Mass) Troponin I Total Protein Albumin Globulin Albumin/Globulin Ratio Triglycerides Cholesterol LDL Cholesterol Direct HDL Cholesterol TSH 3rd Generation Arterial Blood Potassium Influenza Typ A,B (EIA) Ur L.pneumophila Ag Mycoplasma pneumon IgM Assessment & Plan (1) Dyspnea Assessment and Plan: CAT scan of the chest showed no pulmonary embolism but consistent with COPD Agree with nebulizer treatment and Brio Ellipta continue present treatment Status: Acute
--- NOTE | 2019-01-20 13:24 | PCM.PSYCH ---
Initial Psychiatric Evaluation - Initial Psychiatric Evaluation Type of Admission: Voluntary Legal Status: Capacity Chief Complaint (in patient's own words): "I'm fine" History of Present Illness and Precipitating Events: The pt is seen with a medical muck miner. His is contacted with his permission. Consult was asked for capacity eval. He is a78 y/o LM, with adult children, retired, lives with He is here for COPD but he demanded to leave AMA and was agitated today. However, then he calmed down and he was cooperative with the movie writer. Seen with a medical muck miner He has no psych hx Denies SI, HI, del/halluc He was diagnosed with dementia per staff but it is questionable as his memory and attention are not significantly bad. Also, as per his , he is able to take care of himself at home. He knows his illness, treatment and the consequences of not following up No past psych hx Unknown family psych hx Medical: COPD Current Medications: Active Medications Generic Name Dose Route Start Last Admin Trade Name Leonila PRN Reason Stop Dose Admin Albuterol/Ipratropium 3 ml 01/19/19 17:00 01/20/19 12:19 Duoneb 3 Mg/0.5 Mg (3 Ml) Ud INH Not Given RQ4 VANNESSA Finasteride 5 mg 01/19/19 10:00 01/20/19 09:21 Proscar PO 5 mg DAILY VANNESSA Administration Fluticasone/Vilanterol 1 puff 01/19/19 10:00 01/20/19 09:15 Breo Ellipta 100-25 Mcg Inh INH Not Given RQD VANNESSA Metoprolol Succinate 50 mg 01/19/19 10:00 01/20/19 09:25 Toprol Xl PO 50 mg DAILY VANNESSA Administration Rivaroxaban 20 mg 01/19/19 10:00 01/20/19 09:20 Xarelto PO 20 mg DAILY VANNESSA Administration Rosuvastatin Calcium 40 mg 01/19/19 22:00 01/19/19 21:57 Crestor PO 40 mg HS VANNESSA Administration Senna/Docusate Sodium 1 tab 01/19/19 12:00 01/20/19 09:21 Senokot S 50 Mg-8.6 Mg PO 1 tab DAILY VANNESSA Administration Tamsulosin HCl 0.4 mg 01/19/19 10:00 01/20/19 09:21 Flomax PO 0.4 mg DAILY VANNESSA Administration Past Psychiatric History - Past Psychiatric History Previous Treatment History: None Pertinent Medical Hx (Current Medical&Sleep Prob, Allergies): Allergies Allergy/AdvReac Type Severity Reaction Status Date / Time No Known Allergies Allergy Verified 12/22/18 13:19 Finasteride [Proscar] 5 mg PO DAILY #30 tab 12/25/18 Furosemide [Lasix] 20 mg PO DAILY #30 tablet 12/25/18 Losartan [Cozaar] 50 mg PO DAILY #30 tab 12/25/18 Metoprolol Succinate XL [Toprol XL] 25 mg PO DAILY #30 tab 12/25/18 Rivaroxaban [Xarelto] 20 mg PO DAILY #30 tab 12/25/18 Rosuvastatin Calcium [Crestor] 40 mg PO HS #30 tab 12/25/18 Tamsulosin [Flomax] 0.4 mg PO HS #30 cap 12/25/18 Zolpidem [Ambien] 10 mg PO HS #30 tab 12/25/18 Amiodarone [Cordarone] 200 mg PO DAILY 01/19/19 Aspirin [Ecotrin] 81 mg PO DAILY 01/19/19 Fluticasone/Salmeterol 250/50 [Advair Diskus] 1 puff IH Q12 01/19/19 Linaclotide [Linzess] 290 mcg PO DAILY 01/19/19 Losartan [Cozaar] 50 mg PO DAILY 01/19/19 Naproxen 500 mg PO BID 01/19/19 Review of Systems - Psychiatric Psychiatric: Abnormal Sleep Pattern, Difficulty Concentrating, Memory Loss. absent: Hallucinations, Homicidal Ideation, Hopelessness, Suicidal Ideation Mental Status Examination - Personal Presentation Personal Presentation: Looks stated age - Affect Affect: Broad - Motor Activity Motor Activity: Calm - Reliability in Providing Information Reliability in Providing Information: Fair - Speech Speech: Organized - Mood Mood: Anxious - Formal Thought Process Formal Thought Process: No Impairment - Cognitive Functions Orientation: Person, Place, Situation, Time (only year and month) Attention/Concentration: Easily distracted Abstract Thinking: [place] Estimate of Intelligence: Below average Judgement: Intact, as evidence by: Insight regarding need for hospitalization Memory: Recent intact, as evidence by: 3/3 object recall (then 1 out 3 in 5 min), Remote impaired as evidenced by: Inability to recall sig life events - Risk Risk: Diminished functioning - Strength & Assets Inventory Strength & Assets Inventory: Family support DSM 5 DX - DSM 5 DSM 5 Diagnosis: Mild cognitive impairment - Recommended/Plan of Treatment Treatment Recommendations and Plan of Treatment: The pt HAS the capacity to make decisions, based on the fact that he is NOT p sychotic, severely depressed, delirious and his dementia is NOT severe. He is aware of his illness and the consequences of not getting treatment. He in fact wants to receive treatment. Just to be on the safe side, however, I would arrange transportation for him to go home when he leaves, i.e. his 's son will visit him today. Psych will sign off 35 min
--- NOTE | 2019-01-20 13:45 | CP.PCM.DIS ---
Provider - Provider Date of Admission: 01/19/19 06:18 Attending physician: Nixon Choudhury MD Consults: 01/19/19 08:41 Palliative Care Consult Routine Comment: Consulting Provider: Jody Baker Physician Instructions: Reason For Exam: slight MCI, goals of care, noncompliance vs confus 01/19/19 08:44 Cardiology Consult Routine Comment: Consulting Provider: Steve Arenas Consulting Physician: Steve Arenas Reason for Consult: history of diastolic CHF, sob 01/19/19 16:42 Pulmonology Consult Routine Comment: irish Consulting Provider: Fortino Dailey Consulting Physician: Fortino Dailey Reason for Consult: sob, copd, hx of pe 01/20/19 10:28 Psychiatry Consult Routine Comment: Consulting Provider: Re Mclean Consulting Physician: Re Mclean Reason for Consult: evaluate competency Time Spent in preparation of Discharge (in minutes): 35 Diagnosis - Discharge Diagnosis (1) MARY ANN (acute kidney injury) Status: Resolved (2) Heart failure with preserved ejection fraction Status: Chronic (3) CAD (coronary artery disease) of artery bypass graft Status: Chronic (4) Atrial fibrillation Status: Chronic (5) BPH (benign prostatic hyperplasia) Status: Chronic (6) Hypertension Status: Chronic Hospital Course - Lab Results Lab Results: Most Recent Lab Values WBC 6.5 K/uL (4.8-10.8) 01/20/19 07:59 RBC 4.39 Mil/uL (4.40-5.90) L 01/20/19 07:59 Hgb 13.7 g/dL (12.0-18.0) 01/20/19 07:59 Hct 40.9 % (35.0-51.0) 01/20/19 07:59 MCV 93.2 fL (80.0-94.0) 01/20/19 07:59 MCH 31.3 pg (27.0-31.0) H 01/20/19 07:59 MCHC 33.6 g/dL (33.0-37.0) 01/20/19 07:59 RDW 13.1 % (11.5-14.5) 01/20/19 07:59 Plt Count 160 K/uL (130-400) 01/20/19 07:59 MPV 9.8 fL (7.2-11.7) 01/20/19 07:59 Neut % (Auto) 70.7 % (50.0-75.0) 01/20/19 07:59 Lymph % (Auto) 16.0 % (20.0-40.0) L 01/20/19 07:59 Harris % (Auto) 10.5 % (0.0-10.0) H 01/20/19 07:59 Eos % (Auto) 2.5 % (0.0-4.0) 01/20/19 07:59 Baso % (Auto) 0.3 % (0.0-2.0) 01/20/19 07:59 Neut # (Auto) 4.6 K/uL (1.8-7.0) 01/20/19 07:59 Lymph # (Auto) 1.0 K/uL (1.0-4.3) 01/20/19 07:59 Harris # (Auto) 0.7 K/uL (0.0-0.8) 01/20/19 07:59 Eos # (Auto) 0.2 K/uL (0.0-0.7) 01/20/19 07:59 Baso # (Auto) 0.0 K/uL (0.0-0.2) 01/20/19 07:59 D-Dimer, Quantitative < 200 ng/mlDDU (0-243) 01/19/19 06:15 Puncture Site Rrad 01/19/19 13:18 pCO2 38 mm/Hg (35-45) 01/19/19 13:18 pO2 114 mm/Hg (80-100) H 01/19/19 13:18 HCO3 24.7 mmol/L (21-28) 01/19/19 13:18 ABG pH 7.41 (7.35-7.45) 01/19/19 13:18 ABG Total CO2 25.3 mmol/L (22-28) 01/19/19 13:18 ABG O2 Saturation 99.0 % (95-98) H 01/19/19 13:18 ABG Base Excess -0.3 mmol/L (-2.0-3.0) 01/19/19 13:18 Juan Test Pos 01/19/19 13:18 ABG Potassium 4.2 mmol/L (3.6-5.2) 01/19/19 13:18 Sodium 130.0 mmol/l (132-148) L 01/19/19 13:18 Chloride 102.0 mmol/L (98-107) 01/19/19 13:18 Glucose 124 mg/dl (75-110) H 01/19/19 13:18 Lactate 1.1 mmol/L (0.7-2.1) 01/19/19 13:18 Liter Flow 2.0 01/19/19 13:18 Sodium 135 mmol/L (132-148) 01/20/19 07:59 Potassium 3.8 mmol/L (3.6-5.2) 01/20/19 07:59 Chloride 101 mmol/L (98-107) 01/20/19 07:59 Carbon Dioxide 28 mmol/L (22-30) 01/20/19 07:59 Anion Gap 10 (10-20) 01/20/19 07:59 BUN 17 mg/dL (9-20) 01/20/19 07:59 Creatinine 1.3 mg/dL (0.8-1.5) 01/20/19 07:59 Est GFR ( Amer) > 60 01/20/19 07:59 Est GFR (Non-Af Amer) 53 01/20/19 07:59 Random Glucose 108 mg/dL (75-110) 01/20/19 07:59 Hemoglobin A1c 5.9 % (4.2-6.5) 01/20/19 07:59 Calcium 9.1 mg/dl (8.6-10.4) 01/20/19 07:59 Total Bilirubin 0.6 mg/dL (0.2-1.3) 01/20/19 07:59 AST 26 U/L (17-59) 01/20/19 07:59 ALT 11 U/L (21-72) L D 01/20/19 07:59 Alkaline Phosphatase 52 U/L (38-126) 01/20/19 07:59 Total Creatine Kinase 143 U/L (55-170) 01/20/19 01:09 CK-MB (Mass) 1.36 ng/mL (0.0-3.38) 01/20/19 01:09 Troponin I < 0.0120 ng/mL (0.00-0.120) 01/20/19 01:09 NT-Pro-B Natriuret Pep 339 pg/mL (0-900) 01/19/19 05:02 Total Protein 6.2 g/dL (6.3-8.3) L 01/20/19 07:59 Albumin 3.9 g/dL (3.5-5.0) 01/20/19 07:59 Globulin 2.3 gm/dL (2.2-3.9) 01/20/19 07:59 Albumin/Globulin Ratio 1.7 (1.0-2.1) 01/20/19 07:59 Triglycerides 77 mg/dL (0-149) D 01/20/19 07:59 Cholesterol 114 mg/dL (0-199) 01/20/19 07:59 LDL Cholesterol Direct 54 mg/dL (0-129) 01/20/19 07:59 HDL Cholesterol 54 mg/dL (30-70) 01/20/19 07:59 TSH 3rd Generation 2.05 mIU/L (0.46-4.68) 01/20/19 07:59 Arterial Blood Potassium 4.2 mmol/L (3.6-5.2) 01/19/19 13:18 Influenza Typ A,B (EIA) Negative for flu a/b (NEGATIVE) 01/19/19 17:09 Ur L.pneumophila Ag Negative (NEGATIVE) 01/19/19 19:08 Mycoplasma pneumon IgM Negative (NEGATIVE) 01/19/19 11:49 - Hospital Course Hospital Course: On admission: HPI: Patient is a 78 yo male w/ PMH of AFib, AFlutter, HTN, diastolic CHF, CAD w x2 [place] (2x CABG), chronic PE, and BPH admitted to hospital for acute shortness of breath. Patient reports the shortness of breath started yesterday, progressively got worse. Patient was resting at home when the shortness of breath began. Patient drank water at home which did not help and then his called an ambulance as he continued to be dyspenic. Patient reports he took 3 pills during this time but does not recall which ones and believes they may have "poisoned him". Patient may have slight MCI because he was not answering questions appropriately at times and needed to be redirected. After patient was brought to hospital and put on nasal cannula he began to improve. Currently patient does not complain of shortness of breath. Patient denies fevers, chills, chest pain, palpitations, cough, n/v, constipation or diarrhea, and dysuria. Hospital course: CXR showed interval left pleural effusion. Inferred minimal compressive atelectasis. Treatment started with duonebs, breao ellipta; home meds continued, except CHRISSIE/ARB due to MARY ANN (1.6). Ddimer less than 200. Chest CTA showed no c entral or segmental pulmonary emboli noted. Right upper lobe fibrotic scarring along with bronchiectasis-similar appearance. Findings compatible with emphysema and mid/upper lung zones-similar in appearance. Prior renal mass not visually identified. Lower extremity venous dopplers show no evidence of abnormalities. Renal US showed 1.8cm right midpole solid appearing nodule, indeterminate. 3.5cm right upper pole complex cyst. 2.1 left midpole cyst. Pulmonology, Dr. Dailey, consulted. Cardiology, Dr. Arenas, consulted. Troponin x3 normal. Pt noted with Mild MCI on admission, hx of dementia in the past. Psychiatry, Dr. Mclean, consulted and determined pt does have capacity and understanding of his medical conditions. MARY ANN resolved prior to discharge. On discharge interview, pt has no complaints. Denies fever, chills, chest pain, sob, abdominal pain, n/v/d, dizziness, headache, lightheadedness, numbness or tingling. I stressed to the pt that he needs to take all of his meds as prescribed and to follow up with his physicians on a regular basis. Pt agrees. Provided with ipratropium prescription. This is a summary of the hospital course. Please see EMR for full details. Discharge Exam - Additional Findings Additional findings: - Constitutional Appears: Non-toxic, No Acute Distress - Head Exam Head Exam: NORMAL INSPECTION, NORMOCEPHALIC - Eye Exam Eye Exam: EOMI, Normal appearance. absent: Nystagmus, Scleral icterus - ENT Exam ENT Exam: Mucous Membranes Moist - Respiratory Exam Respiratory Exam: Clear to Auscultation Bilateral, NORMAL BREATHING PATTERN. absent: Rales, Rhonchi, Wheezes - Cardiovascular Exam Cardiovascular Exam: IRREGULAR RHYTHM, +S1, +S2. Absent: tachycardia - GI/Abdominal Exam GI & Abdominal Exam: Normal Bowel Sounds, Soft. absent: Diminished Bowel Sounds, Distended, Firm, Guarding, Tenderness - Extremities Exam Extremities exam: Positive for: normal inspection. Negative for: calf tenderness, pedal edema - Back Exam Back exam: NORMAL INSPECTION. absent: CVA tenderness (L), CVA tenderness (R) - Neurological Exam Neurological exam: Alert, Oriented x3 - Psychiatric Exam Psychiatric exam: Normal Affect, Normal Mood - Skin Skin Exam: Dry, Intact, Normal Color Discharge Plan - Discharge Medications Prescriptions: Ipratropium [Atrovent HFA] 1 puff IH DAILY #1 inhaler - Follow Up Plan Condition: STABLE Disposition: HOME/ ROUTINE Instructions: Heart Healthy Diet, Heart Failure, Adult (DC), Ipratropium (Oral Inhalation), Shortness of Breath (Dyspnea) (DC), Acute Kidney Injury (DC) Additional Instructions: Pt is medically stable for discharge home as per Dr. Roche. New prescriptions: Atrovent, 1 puff daily. #1 inhaler Please follow up with Dr. Silverio within 1 week. Call to make an appointment. Please follow up with Dr. Arenas, public policy professor in 1 month. Call to make an appointment. Please follow up with Dr. Dailey within 2 weeks. Please take your previous medications as prescribed. If symptoms worsen, return to the emergency department. Take care and be well. Pt es mdicamente estable para el gertrude hospitalaria segn el Dr. Roche. Nuevas recetas: Atrovent, 1 puff diario. Inhalador # 1 Por favor dhara un seguimiento con el Dr. Silverio dentro de 1 semana. Llame al para hacer david alejandra. Por favor dhara un seguimiento con el Dr. Arenas, cardilogo en 1 mes. Llame al para hacer david alejandra. Por favor dhara un seguimiento con el Dr. Dailey dentro de 2 semanas. Por favor, tome ruchi medicamentos anteriores segn lo prescrito. Si los sntomas empeoran, vuelva al servicio de urgencias. Cudate y sintete chica. Referrals: Fortino Dailey MD [Staff Provider] -
--- NOTE | 2019-01-21 08:26 | CP.PCM.CON ---
History of Present Illness - History of Present Illness History of Present Illness: CC: Cardiac evlaution for dyspnea HPI: Patient is a 78 yo male w/ PMH of AFib, AFlutter, HTN, diastolic CHF, CAD w x2 [place] (2x CABG), chronic PE, and BPH admitted to hospital for acute shortness of breath. Patient reports the shortness of breath started yesterday, progressively got worse. Patient was resting at home when the shortness of breath began. Patient drank water at home which did not help and then his called an ambulance as he continued to be dyspenic. Patient reports he took 3 pills during this time but does not recall which ones and believes they may have "poisoned him". Patient may have slight MCI because he was not answering questions appropriately at times and needed to be redirected. After patient was brought to hospital and put on nasal cannula he began to improve. Currently patient does not complain of shortness of breath. Patient denies fevers, chills, chest pain, palpitations, cough, n/v, constipation or diarrhea, and dysuria. PMH- AFib, AFlutter, HTN, diastolic CHF, CAD w x2 [place] (2x CABG), chronic PE, and BPH PSH- Accident (knee surgery), CABGx 2 (most recent 2 years ago) FH- Denies Meds- proscar 5mg daily, tamsulosin 0.4mg po daily, Toprol 25mg daily, Crestor 40mg daily, Losartan 50mg daily, Xarelto 20mg po daily, Lasix 20mg po daily Allergies- NKDA Social- 20 year smoking history during , quit over 10 years ago; denies alcohol and recreational drug use PMD- Dr. Silverio Present on Admission - Present on Admission Any Indicators Present on Admission: No Review of Systems - Review of Systems All systems: reviewed and no additional remarkable complaints except (s) Review of Systems: see HPI Past Patient History - Infectious Disease Hx of Infectious Diseases: None - Tetanus Immunizations Tetanus Immunization: Unknown - Past Medical History & Family History Past Medical History?: Yes - Past Social History Smoking Status: Never Smoked - CARDIAC Hx Atrial Fibrillation: Yes Hx Hypertension: Yes - HEENT Hx HEENT Problems: No Hx Blind: No Hx Cataracts: No Hx Deafness: No Hx Difficulty Chewing: No Hx Epistaxis: No Hx Glaucoma: No Hx Macular Degeneration: No - INTEGUMENTARY Hx Eczema: No Hx Melanoma: No Hx Psoriasis: No Hx Squamous Cell: No - GENITOURINARY/GYNECOLOGICAL Hx Genitourinary Disorders: Yes - PSYCHIATRIC Hx Substance Use: No - SURGICAL HISTORY Hx Coronary Artery Bypass Graft: Yes (2015) - ANESTHESIA Hx Anesthesia: Yes Hx Anesthesia Reactions: No Hx Malignant Hyperthermia: No Meds Allergies/Adverse Reactions: Allergies Allergy/AdvReac Type Severity Reaction Status Date / Time No Known Allergies Allergy Verified 12/22/18 13:19 Physical Exam - Constitutional Appears: Non-toxic, No Acute Distress - Head Exam Head Exam: NORMAL INSPECTION, NORMOCEPHALIC - Eye Exam Eye Exam: EOMI, Normal appearance. absent: Nystagmus, Scleral icterus - ENT Exam ENT Exam: Mucous Membranes Dry - Respiratory Exam Respiratory Exam: Clear to Auscultation Bilateral, NORMAL BREATHING PATTERN. absent: Rales, Rhonchi, Wheezes - Cardiovascular Exam Cardiovascular Exam: REGULAR RHYTHM, +S1, +S2 - GI/Abdominal Exam GI & Abdominal Exam: Normal Bowel Sounds, Soft. absent: Diminished Bowel Sounds, Distended, Firm, Guarding, Tenderness - Extremities Exam Extremities exam: Positive for: normal inspection. Negative for: calf tenderness, pedal edema - Back Exam Back exam: NORMAL INSPECTION. absent: CVA tenderness (L), CVA tenderness (R) - Neurological Exam Neurological exam: Alert, Oriented x3 - Psychiatric Exam Psychiatric exam: Normal Affect, Normal Mood - Skin Skin Exam: Dry, Intact, Normal Color Results - Vital Signs Recent Vital Signs: Last Vital Signs Temp 97.6 F 01/19/19 07:14 Pulse 52 L 01/19/19 07:14 Resp 14 01/19/19 07:14 BP 141/66 01/19/19 07:14 Pulse Ox 97 01/19/19 07:14 - Labs Result Diagrams: 01/19/19 05:02 01/19/19 05:02 Labs: Laboratory Results - last 24 hr 01/19/19 01/19/19 01/19/19 05:02 05:02 06:15 WBC 7.5 RBC 5.00 Hgb 15.3 Hct 46.4 MCV 92.8 MCH 30.7 MCHC 33.1 RDW 13.0 Plt Count 177 MPV 9.1 Neut % (Auto) 63.6 Lymph % (Auto) 22.4 [place] % (Auto) 10.3 H Eos % (Auto) 3.2 Baso % (Auto) 0.5 Neut # (Auto) 4.8 Lymph # (Auto) 1.7 [place] # (Auto) 0.8 Eos # (Auto) 0.2 Baso # (Auto) 0.0 D-Dimer, Quantitative < 200 Sodium 136 Potassium 4.1 Chloride 102 Carbon Dioxide 28 Anion Gap 10 BUN 24 H Creatinine 1.6 H Est GFR ( Amer) 51 Est GFR (Non-Af Amer) 42 Random Glucose 93 D Calcium 9.5 Total Bilirubin 0.7 AST 32 ALT 18 L D Alkaline Phosphatase 63 Troponin I 0.0220 NT-Pro-B Natriuret Pep 339 Total Protein 7.3 Albumin 4.6 Globulin 2.7 Albumin/Globulin Ratio 1.7 Assessment & Plan - Assessment and Plan (Free Text) Assessment: 78 yo male w/ PMH of AFib, AFlutter, HTN, diastolic CHF, CAD w x2 [place] (2x CABG), chronic PE, and BPH admitted to hospital for acute shortness of breath. CXR did show left pleural effusion. Chest CT pending. Plan: SOB CXR shows left pleural effusion Chest CT pending Ultrasound of lower extremity pending ABG pending Nasal Cannula 2l Xarelto 20mg po daily Duonebs q6 pancho BreoEllipta daily MARY ANN likely pre-renal Renal US pending NS @ 40mls/hr; repeat BMP pending No CHRISSIE-I or ARB or diuretic currently due to MARY ANN CAD w/ [place] and CABG Toprol 25mg po daily Crestor 40mg po daily Held CHRISSIE-I or ARB or diuretic Moderate risk factors for bleeding (ASP mildly contraindicated) History of diastolic CHF Recent Echo EF 57.2 No exacerbation active BNP normal Lasix and ARB held due to MARY ANN Toprol 25mg daily History of HTN Toprol 25mg daily History of BPH Proscar 5mg po daily Tamsulosin 0.4 mg po daily Hx of Afib Xarleto 20mg po daily Toprol 25mg po daily no active afib Hx of chronic PE Xarelto 20mg po daily PPX DVT ppx: Xarelto 20mg po daily GI ppx: not indicated Past Patient History - Infectious Disease Hx of Infectious Diseases: None - Tetanus Immunizations Tetanus Immunization: Unknown - Past Medical History & Family History Past Medical History?: Yes - Past Social History Smoking Status: Never Smoked - CARDIAC Hx Hypertension: Yes - HEENT Hx HEENT Problems: No Hx Blind: No Hx Cataracts: No Hx Deafness: No Hx Difficulty Chewing: No Hx Epistaxis: No Hx Glaucoma: No Hx Macular Degeneration: No - INTEGUMENTARY Hx Eczema: No Hx Melanoma: No Hx Psoriasis: No Hx Squamous Cell: No - GENITOURINARY/GYNECOLOGICAL Hx Genitourinary Disorders: Yes - PSYCHIATRIC Hx Substance Use: No - SURGICAL HISTORY Hx Coronary Artery Bypass Graft: Yes (2015) - ANESTHESIA Hx Anesthesia: Yes Hx Anesthesia Reactions: No Hx Malignant Hyperthermia: No Meds Home Medications: Home Medication List Medication Instructions Recorded Confirmed Type Ipratropium [Atrovent HFA] 1 puff IH DAILY #1 inhaler 01/20/19 Rx Allergies/Adverse Reactions: Allergies Allergy/AdvReac Type Severity Reaction Status Date / Time No Known Allergies Allergy Verified 12/22/18 13:19 Results - Vital Signs Recent Vital Signs: Last Vital Signs Temp 97.9 F 01/20/19 07:15 Pulse 50 L 01/20/19 07:15 Resp 20 01/20/19 07:15 BP 115/70 01/20/19 07:15 Pulse Ox 98 01/20/19 07:15 - Labs Result Diagrams: 01/20/19 07:59 01/20/19 07:59 Labs: Laboratory Results - last 24 hr 01/20/19 01/20/19 07:59 07:59 Hemoglobin A1c 5.9 LDL Cholesterol Direct 54 TSH 3rd Generation 2.05
== END 2019-01-20 16:00 | disposition home or self-care (01) ==
LOC: C.ER 04:33 → C.6T 06:18
PROVIDERS: ADMIT Family Medicine; ATTEND Family Medicine
DX: N17.9 Acute kidney failure, unspecified (principal); I11.0 Hypertensive heart disease with heart failure; I25.10 Atherosclerotic heart disease of native coronary artery without angina pectoris; I48.91 Unspecified atrial fibrillation; I50.32 Chronic diastolic (congestive) heart failure; I77.819 Aortic ectasia, unspecified site; J44.9 Chronic obstructive pulmonary disease, unspecified; N40.0 Benign prostatic hyperplasia without lower urinary tract symptoms; Z51.5 Encounter for palliative care; Z87.891 Personal history of nicotine dependence; Z91.14 Patient's other noncompliance with medication regimen
CPT/HCPCS: 36415; 71045; 71275; 76770; 80048; 80053; 80061; 82803; 83036; 83880; 84443; 84484; 85025; 85378; 86738; 87449; 87804; 93005; 93970; 94640; 97116; 97162; 97530; 99285; G0378; G8978; G8979; G8980; J7030; Q9967